=== PATIENT | female | born 1965 | race Caucasian/White ===

== ENCOUNTER → 2017-06-07 | Outpatient (CLI) | payer BC ==
[~2017-06-07] MED LIST: ASPI-232 PO; BCTROWC TOP; DTR5 PO; IBUP-1277 PO; LEVO100T7 PO; OMEP20CA9 PO; VTMD PO
== END | disposition home or self-care (01) ==
LOC: C.RDSM 15:47
PROVIDERS: ATTEND Physical Medicine & Rehabilitation Sports Medicine
DX: M25.512 Pain in left shoulder (principal)

== ENCOUNTER → 2017-06-13 | Outpatient (CLI) | payer BC ==
--- NOTE | 2017-06-13 16:13 | DIAGNOSTIC IMAGING REPORT ---
LEFT UPPER EXT JOINT WITHOUT CLINICAL HISTORY: 51 years-old Female presenting with anterior left shoulder pain since December, fell several times onto the left shoulder with decreased range of motion. TECHNIQUE: Multisequence, multiplanar MR imaging of the left shoulder was performed without the use of intravenous contrast. IV contrast: None. COMPARISON: Plain radiographs of the left shoulder from 06/07/2017. FINDINGS: Localizer images: Unremarkable. Bony edema along the greater tuberosity at the footplate of the rotator cuff. Minimal cystic change anteriorly in the clavicle at the acromioclavicular joint. Less than 50% loss of articular cartilage along the mid to posterior humeral head predominantly inferiorly. No subchondral changes in the bone marrow. Edema noted along the myotendinous junction of the infraspinatus. Minimal fluid signal within the subdeltoid subacromial bursa. Linear defect through the supraspinatus tendon, which appears to be full-thickness along the anterior fibers near the footplate. A bursal surface partial tear of the infraspinatus is also present slightly proximal to the footplate at the junction with the supraspinatus. Subscapularis intact. Glenoid labrum intact. Long head of the biceps tendon well seated within the bicipital groove. Biceps anchor is intact. Mild atrophy of the supraspinatus with remaining musculature demonstrating normal muscle bulk. Normal signal intensity of the musculature. No significant joint effusion. IMPRESSION: Evidence of full-thickness tear of the anterior fibers of the supraspinatus tendon near the footplate and bursal surface partial tear of the infraspinatus at the junction with the supraspinatus. Associated bony edema. Mild atrophy of the supraspinatus. Electronically signed by: Douglas Addison M.D. 06/13/2017 4:12 PM Dictated Date/Time: 06/13/2017 4:01 PM
== END | disposition home or self-care (01) ==
LOC: C.MRI 14:23
PROVIDERS: ATTEND Physical Medicine & Rehabilitation Sports Medicine
DX: S46.912A Strain of unspecified muscle, fascia and tendon at shoulder and upper arm level, left arm, initial encounter (principal); X58.XXXA Exposure to other specified factors, initial encounter

== ENCOUNTER 2020-10-31 12:19 | Observation (INO) ==
--- NOTE | 2020-10-31 12:54 | Emergency Department Note ---
History of Present Illness General Chief complaint: Shortness of Breath/Dyspnea Stated complaint: COVID +,SOB Time Seen by Provider: 10/31/20 12:40 Source: patient Mode of arrival: ambulatory Limitations: no limitations History of Present Illness Maximum Pain Intensity: 7 This patient brought herself to the emergency department after having increasing shortness of breath and worsening of symptoms. She was diagnosed with Covid on October 22. She started having symptoms on the first. She has had shortness of breath and cough as well as a headache at times and fever. Over the last couple days she is got more short of breath with a dry hacking cough. No change in taste or smell. She had diarrhea this morning but no other GI symptoms. She believes she has been keeping up with her fluids. No chest pain. No abdominal pain Home Medications Medication Instructions Recorded Confirmed Type albuterol sulfate 2 puff INHALATION Q4H PRN 10/31/20 10/31/20 History fluoxetine 10 mg PO QAM 10/31/20 10/31/20 History levothyroxine 125 mcg PO QAM 10/31/20 10/31/20 History oxybutynin chloride 5 mg PO QID 10/31/20 10/31/20 History pantoprazole 40 mg PO BID 10/31/20 10/31/20 History Allergies Allergy/AdvReac Type Severity Reaction Status Date / Time verapamil Allergy Intermediate HIVES Verified 10/31/20 13:10 Past Med/Surg History Social History Smoking Status: Never smoker Preferred Language: Bulgarian Feels Safe at Home: Yes Review of Systems A total of 10 systems reviewed and were otherwise negative Physical Exam Vital Signs Vital Signs - 24 hr 10/31/20 12:25 10/31/20 12:56 10/31/20 13:00 Temperature 38.2 C H Temperature Source Temporal Artery Scan Pulse Rate 86 90 95 H Pulse Rate [Apical] 86 Pulse Rate from SpO2 Sensor 89 Pulse Rhythm Regular Pulse Rhythm [Apical] Regular Pulse Strength Normal Respiratory Rate 16 22 25 H Respiratory Effort / Characteristics Non-Labored Respiratory Depth Normal Respiratory Pattern Regular Blood Pressure 158/92 H 113/89 130/72 Blood Pressure [Left Arm] 113/89 Blood Pressure Mean 114 100 97 Blood Pressure Mean [Left Arm] 97 Blood Pressure Position Sitting Blood Pressure Position [Left Arm] Sitting Pulse Oximetry 93 94 95 Oxygen Delivery Method Room Air Room Air Sepsis Recent Fever Within 48 Hours Yes Sepsis New/Unexplained Change in Mental Status N/A Sepsis Action Taken by Nursing No Action Required 10/31/20 13:30 10/31/20 13:31 10/31/20 13:34 Temperature Temperature Source Pulse Rate 75 74 Pulse Rate [Apical] Pulse Rate from SpO2 Sensor 76 74 Pulse Rhythm Pulse Rhythm [Apical] Pulse Strength Respiratory Rate 25 H 28 H Respiratory Effort / Characteristics Non-Labored Spontaneous Short of Breath SOB on Exertion Respiratory Depth Normal Respiratory Pattern Regular Blood Pressure 110/71 Blood Pressure [Left Arm] Blood Pressure Mean 82 Blood Pressure Mean [Left Arm] Blood Pressure Position Blood Pressure Position [Left Arm] Pulse Oximetry 96 96 Oxygen Delivery Method Sepsis Recent Fever Within 48 Hours Sepsis New/Unexplained Change in Mental Status Sepsis Action Taken by Nursing 10/31/20 14:02 10/31/20 14:30 10/31/20 15:00 Temperature Temperature Source Pulse Rate 81 73 83 Pulse Rate [Apical] Pulse Rate from SpO2 Sensor 81 74 83 Pulse Rhythm Pulse Rhythm [Apical] Pulse Strength Respiratory Rate 30 H 30 H 23 Respiratory Effort / Characteristics Respiratory Depth Respiratory Pattern Blood Pressure 102/90 134/75 136/91 Blood Pressure [Left Arm] Blood Pressure Mean 92 94 104 Blood Pressure Mean [Left Arm] Blood Pressure Position Blood Pressure Position [Left Arm] Pulse Oximetry 96 95 94 Oxygen Delivery Method Sepsis Recent Fever Within 48 Hours Sepsis New/Unexplained Change in Mental Status Sepsis Action Taken by Nursing 10/31/20 15:20 10/31/20 16:14 Temperature Temperature Source Pulse Rate Pulse Rate [Apical] 75 73 Pulse Rate from SpO2 Sensor Pulse Rhythm Pulse Rhythm [Apical] Pulse Strength Respiratory Rate 20 23 Respiratory Effort / Characteristics Non-Labored Respiratory Depth Normal Respiratory Pattern Blood Pressure Blood Pressure [Left Arm] 123/80 135/117 H Blood Pressure Mean Blood Pressure Mean [Left Arm] 94 123 Blood Pressure Position Blood Pressure Position [Left Arm] Pulse Oximetry 95 95 Oxygen Delivery Method Room Air Room Air Sepsis Recent Fever Within 48 Hours Sepsis New/Unexplained Change in Mental Status Sepsis Action Taken by Nursing General: Well developed well nourished middle-aged female who is hacking and coughing occasionally but in no acute distress, breathing comfortably on room air. Normal speech HEENT: Normal cephalic atraumatic. Pupils are equal round and reactive to light. Extraocular movements are intact. Oropharynx is pink with moist mucous membranes. No swelling of the mouth lips or tongue. Neck: Supple with a midline trachea. No meningeal signs or stiffness, no JVD or bruits. No Stridor. Chest: Clear to auscultation bilaterally. No wheezes or rhonchi. No increased work of breathing. Heart: Regular rate and rhythm without murmurs or gallops. Abdomen: Soft nontender, nondistended without rebound guarding or rigidity. Extremities: No cyanosis clubbing or edema. No calf tenderness or assymetry Spine/Back. Non tender to palpation. No CVA tenderness Skin: Good turgor without rashes. Neurologic exam: Cranial nerves two through 12 are intact. Motor and sensation are intact and symmetrical throughout. Course Administered Medications Discontinued Medications Acetaminophen (Acetaminophen 325 Mg Tab) 650 mg PO NOW STA Stop: 10/31/20 14:22 Last Admin: 10/31/20 15:23 Dose: 650 mg Documented by: [id number] Sodium Chloride (Nss 1000ml) 1,000 mls @ 999 mls/hr IV .Q1H1M DEREJE Stop: 10/31/20 14:00 Last Infusion: 10/31/20 14:08 Dose: 0 mls/hr Documented by: [id number] Admin: 10/31/20 13:07 Dose: 999 mls/hr Documented by: [id number] Medical Decision Making Differential Diagnosis Covid, pneumonia, CHF, cardiac disease, hypoxemia, dehydration, electrolyte or metabolic abnormality Laboratory Data Attestation: I reviewed the patient's lab results. Result diagrams: 10/31/20 12:57 10/31/20 12:57 Lab Results 10/31/20 10/31/20 10/31/20 Range/Units 12:57 12:57 12:57 WBC 6.30 (4.8-10.8) K/uL RBC 4.85 (4.2-5.4) M/uL Hgb 15.4 (12.0-16.0) g/dL Hct 44.4 (37-47) % MCV 91.5 (80-100) fL MCH 31.8 (25-34) pg MCHC 34.7 (32-36) g/dL RDW Std Deviation 43.8 (36.4-46.3) fL RDW Coeff of Wade 13.1 (11.5-14.5) % Plt Count 222 (130-400) K/uL MPV 10.1 (7.4-10.4) fL Immature Gran % (Auto) 0.2 % Neut % (Auto) 66.3 % Lymph % (Auto) 23.0 % [place] % (Auto) 9.7 % Eos % (Auto) 0.6 % Baso % (Auto) 0.2 % Neut # (Auto) 4.18 (1.4-6.5) K/uL Lymph # (Auto) 1.45 (1.2-3.4) K/uL [place] # (Auto) 0.61 H (0.11-0.59) K/uL Eos # (Auto) 0.04 (0-0.5) K/uL Baso # (Auto) 0.01 (0-0.2) K/uL Immature Gran # (Auto) 0.01 (0.00-0.02) K/uL PT 10.6 (9.0-12.0) Seconds INR 1.0 (0.9-1.1) APTT 26.0 (21.0-31.0) Seconds PTT Ratio 0.9 Sodium 138 (136-145) mmol/L Potassium 3.6 (3.5-5.1) mmol/L Chloride 106 (98-107) mmol/L Carbon Dioxide 28 (21-32) mmol/L Anion Gap 4.0 (3-11) BUN 11 (7-18) mg/dl Creatinine 0.89 (0.6-1.2) mg/dl Est Cr Clr Drug Dosing 88.9 ml/min Est GFR ( Amer) 85.2 Est GFR (Non-Af Amer) 73.5 BUN/Creatinine Ratio 12.5 (10-20) Glucose 93 (70-99) mg/dl Calcium 9.0 (8.5-10.1) mg/dl Total Bilirubin 0.7 (0.2-1) mg/dl AST 16 (15-37) U/L ALT 36 (12-78) U/L Alkaline Phosphatase 77 (45-117) U/L Troponin I < 0.015 (0-0.045) ng/ml Total Protein 8.0 (6.4-8.2) gm/dl Albumin 3.6 (3.4-5.0) gm/dl Globulin 4.4 H (2.5-4.0) gm/dl Albumin/Globulin Ratio 0.8 L (0.9-2) Lipase 198 (73-393) U/L Imaging Data Attestation: I personally reviewed and interpreted this imaging study as follows: My Impression: Chest x-ray upon my interpretation: No acute infiltrate, failure, pneumothorax seen. Radiologist's Impression: SINGLE VIEW CHEST CLINICAL HISTORY: Atypical chest pain. FINDINGS: An AP, portable, upright chest radiograph is compared to study dated 01/04/2008. The cardiomediastinal silhouette is unremarkable. There is elevation of the right hemidiaphragm with associated right basilar atelectasis. No airspace consolidation or large pleural effusion is identified. No pneumothorax is seen. The skeletal structures are osteopenic. The bony thorax is grossly intact. IMPRESSION: 1. No acute cardiopulmonary abnormality. 2. There is elevation of the right hemidiaphragm with associated atelectasis. ECG Data Attestation: I personally reviewed and interpreted this ECG as follows: Indication: + SOB/dyspnea Rate (beats per minute): 85 Rhythm: + normal sinus ECG Intervals/blocks: no Normal QRS, no Normal QT and no Normal NH ECG [place]: + Normal ECG ST segments: + Normal ST segments ECG Findings: no PACs and no PVCs Comparison ECG Date: no prior available MDM Narrative This patient comes in with known Covid. She was diagnosed 9 days ago and star hollie having symptoms 11 days ago. She is been getting worse with more shortness of breath and weakness. She is been keeping up with her fluids in triage her oxygen saturation was low at 93. She is an ex-smoker but does not currently smoke and has no lung problems to begin with she tells me. When I saw her O2 sat was 93%. IV access was established and she was hydrated with IV normal saline bolus, chest x-ray, and EKG were obtained as well as blood work. She was given Tylenol p.o. for her fever/headache. She was placed on respiratory/airborne precaution. Chest x-ray does not show any acute infiltrate, failure, pneumothorax. EKG does not show any ischemic changes. She is no significant electrolyte or metabolic abnormalities. Given the fact that she has been getting worse despite outpatient steroids and was mildly hypoxemic I do think that she needs to be admitted/observed a consult to Dr. Juarez from [facility] to see her in the ER for these measures Continuous cardiac monitoring: Order was placed in the EMR for continuous cardiac monitoring. The patient was found to be in normal sinus rhythm with a rate of 73. Impression & Plan COVID-19, Dyspnea, Hypoxemia, Cough, Headache Discharge Plan Visit Data Chief Complaint: Shortness of Breath/Dyspnea Stated Complaint: COVID +,SOB ED Provider: Etlon Morejon Discharge Problem: COVID-19, Dyspnea, Hypoxemia, Cough, Headache Discharge Instructions Interventions: ED Discharge Assessment Last Done: 10/31/20 16:25 Forms Stand Alone Forms: [facility] Prescriptions Prescriptions: No Action pantoprazole 40 mg tablet,delayed release (DR/EC) 40 mg PO BID RF: 0 levothyroxine 125 mcg tablet 125 mcg PO QAM RF: 0 fluoxetine 10 mg capsule 10 mg PO QAM RF: 0 albuterol sulfate 90 mcg/actuation HFA aerosol inhaler 2 puff INHALATION Q4H PRN (Reason: Shortness Of Breath) RF: 0 oxybutynin chloride 5 mg tablet 5 mg PO QID RF: 0 Referrals Referrals: Kae Putnam DO [Primary Care Provider] - Discharge Problem: Dyspnea Qualifiers: Dyspnea type: unspecified Qualified Code(s): R06.00 - Dyspnea, unspecified Headache Qualifiers: Headache type: unspecified Headache chronicity pattern: unspecified pattern Intractability: not intractable Qualified Code(s): R51.9 - Headache, unspecified
[2020-10-31] MEDS ORDERED: SODIUM CHLORIDE 0.9% 1000ML 1,000 ML IV SCH (13:00)
--- NOTE | 2020-10-31 13:05 | XRay Report ---
SINGLE VIEW CHEST CLINICAL HISTORY: Atypical chest pain. FINDINGS: An AP, portable, upright chest radiograph is compared to study dated 01/04/2008. The cardiom ediastinal silhouette is unremarkable. There is elevation of the right hemidiaphragm with associated right basilar atelectasis. No airspace consolidation or large pleural effusion is identified. No pneu mothorax is seen. The skeletal structures are osteopenic. The bony thorax is grossly intact. IMPRESSION: 1. No acute cardiopulmonary abnormality. 2. There is elevation of the right hemidiaphragm with associated atelectasis. ACT 112: Negative or not required by law. Electronically signed by: Patrick Montgomery M.D. 10/31/2020 1:04 PM
[2020-10-31 13:24] LABS: Basophils # (auto) 0.01 K/uL (0-0.2); Basophils % (auto) 0.2 %; Eosinophils # (auto) 0.04 K/uL (0-0.5); Eosinophils % (auto) 0.6 %; Hematocrit (blood only) 44.4 % (37-47); Hemoglobin 15.4 g/dL (12.0-16.0); Immature Granulocytes # (auto) 0.01 K/uL (0.00-0.02); Immature Granulocytes % (auto) 0.2 %; Lymphocytes # (auto) 1.45 K/uL (1.2-3.4); Mean Corpuscular Hemoglobin 31.8 pg (25-34); Mean Corpuscular Hgb Conc 34.7 g/dL (32-36); Mean Corpuscular Volume 91.5 fL (80-100); Mean Platelet Volume 10.1 fL (7.4-10.4); Monocytes # (auto) 0.61 K/uL (0.11-0.59); Monocytes % (auto) 9.7 %; Neutrophils # (auto) 4.18 K/uL (1.4-6.5); Neutrophils % (auto) 66.3 %; Platelet Count 222 K/uL (130-400); RDW Coefficient of Variation 13.1 % (11.5-14.5); RDW Standard Deviation 43.8 fL (36.4-46.3); Red Blood Count 4.85 M/uL (4.2-5.4)
[2020-10-31 13:34] LABS: Partial Thromboplastin Ratio 0.9; Prothrombin Time 10.6 Seconds (9.0-12.0)
[2020-10-31 13:40] LABS: Alanine Aminotransferase 36 U/L (12-78); Albumin Level 3.6 gm/dl (3.4-5.0); Aspartate Aminotransferase 16 U/L (15-37); BUN Creatinine Ratio 12.5 (10-20); Blood Urea Nitrogen 11 mg/dl (7-18); Carbon Dioxide 28 mmol/L (21-32); Chloride 106 mmol/L (98-107); Creatinine Clr Calc Pharmacy 88.9 ml/min; Est GFR (African American) 85.2; Est GFR (Non-African American) 73.5; Glucose 93 mg/dl (70-99); Lipase 198 U/L (73-393); Potassium 3.6 mmol/L (3.5-5.1); Sodium 138 mmol/L (136-145)
[2020-10-31 13:48] LABS: Albumin Globulin Ratio 0.8 (0.9-2); Alkaline Phosphatase 77 U/L (45-117); Bilirubin,Total 0.7 mg/dl (0.2-1); Globulin 4.4 gm/dl (2.5-4.0); Troponin I < 0.015 ng/ml (0-0.045)
[2020-10-31] MEDS ORDERED: ACETAMINOPHEN 325 MG TAB PO STA ×2 (14:21→22:01)
--- NOTE | 2020-10-31 14:45 | History & Physical Report ---
Date of Service October 31, 2020 Assessment & Plan (1) COVID-19: (2) Dyspnea: (3) Hypothyroid: (4) GERD (gastroesophageal reflux disease): (5) Obesity: DVT prophylaxis, Dexamethasone, Vit D3, Zinc, O2, PPI, OBS History of Present Illness 55-year-old healthy female started to get Covid symptoms on 20 October. Began with shortness of breath fever and chills over the last several days her shortness of breath and cough and gotten worse. On October 22 she was diagnosed with Covid and finished a course of steroids. However she does not feel that she is getting better and she getting progressively worse so she drove herself to the emergency room this morning. In the ER she was noted to be febrile and 92% on room air. She says when she walks up stairs she has to sit down and catch her breath. She states she was doing fine, but on Monday she started to get the symptoms all over again, fevers, chills, headache, and today she started to have diarrhea. Past medical historyobesity, diverticulosis, GERD, hypothyroidism Past surgical historycholecystectomy, appendectomy, hysterectomy, partial colon resection. Family historymother is alive with diabetes and coronary disease, father is alive with coronary disease, she has 1 son and 2 daughters are healthy. 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 Primary Care Provider: Kae Putnam DO Allergies Allergy/AdvReac Type Severity Reaction Status Date / Time verapamil Allergy Intermediate HIVES Verified 10/31/20 13:10 Home Medications Medication Instructions Recorded Confirmed Type albuterol sulfate 2 puff INHALATION Q4H PRN 10/31/20 10/31/20 History fluoxetine 10 mg PO QAM 10/31/20 10/31/20 History levothyroxine 125 mcg PO QAM 10/31/20 10/31/20 History oxybutynin chloride 5 mg PO QID 10/31/20 10/31/20 History pantoprazole 40 mg PO BID 10/31/20 10/31/20 History Past Med/Surg History Social History Smoking Status: Never smoker Preferred Language: Polish Feels Safe at Home: Yes Physical Exam Physical Exam: ROS-positive headache, No Visual Changes, positive nausea, No Vomiting, positive fever, positive chills, No Neck Pain or Stiffness, No Chest Pain, No Palpitations, positive SOB, positive QUEEN, positive cough, No Sputum, positive wheezing, No Abdominal Pain, positive diarrhea, No Hematemesis, No Hemoptysis, No Unexpected Weight Loss, No Flank pain, No Melena, No Hematochezia, No Frequency, No Urgency, No Burning, No Hematuria, No Rashes, No Diaphoresis. Appetite is Normal Physical Exam Gen-AAO x 3, NAD, Afebrile, obese Head-NCAT, EOMI, PERRLA, Anicteric Sclera, No Posterior Pharyngeal Erythema Neck-Supple, No JVD, No Thyromegaly, No Masses, No LAD, No Bruits Lungs-faint crackles bilaterally, no rhonchi or wheezing Chest-No S4, +S1, +S2, No S3, No Murmurs, No Rubs, No Gallops, No Ectopy Abdomen-Soft, obese, bowel Sounds Present, Non Tender, Non Distended, No Hepatomegaly, No Splenomegaly, No Palpable Masses, No Rebound, No Rigidity, No Guarding Musculoskeletal-Full Range of Motion Bilaterally, No CVAT Extremities-No Cyanosis, No Clubbing, No Edema Nuero-Cranial Nerves II-XII grossly intact, Motor WNL, DTRs WNL, Strength WNL, Non Focal Psych-Normal Mood Results & Data Results & Data ([facility]) Vital Signs (Past 12 Hours) Vital Signs Temp Pulse Pulse Resp BP BP Pulse Ox 10/31/20 13:31 74 28 H 96 10/31/20 13:30 75 25 H 110/71 96 10/31/20 13:00 95 H 25 H 130/72 95 10/31/20 12:56 90 86 22 113/89 113/89 94 10/31/20 12:25 38.2 C H 86 16 158/92 H 93 Allergies verapamil Allergy (Intermediate, Verified 10/31/20 13:10) HIVES Height/Weight/Isolation Height 5 ft 3 in Weight 116.3 kg Isolation Type Airborne Precautions Chemistry 10/31/20 12:57 Sodium 138 Potassium 3.6 Chloride 106 Carbon Dioxide 28 Anion Gap 4.0 BUN 11 Creatinine 0.89 Glucose 93
[2020-10-31] MEDS ORDERED: ALBUT/IPRATROP 3MG/0.5MG NEB 3 ML VIAL NEB PRN (17:26)
[2020-10-31] MEDS ORDERED: ONDANSETRON INJ 2 MG/ML 2 ML VIAL IV PRN (17:26)
[2020-10-31] MEDS: ZINC SULFATE 220 MG CAPSULE PO SCH (18:08)
[2020-10-31] MEDS: CHOLECALCIFEROL 400 UNITS 10 MCG TAB PO SCH (18:08)
[2020-10-31] MEDS: OXYBUTYNIN CHLORIDE 5 MG TAB PO SCH ×2 (18:08→21:56)
[2020-10-31 18:34] LABS: C Reactive Protein 1.17 mg/dl (0-0.29)
[2020-10-31] MEDS: HEPARIN SOD 5,000 UNIT/0.5 ML VIAL SQ SCH (21:56)
[2020-10-31] MEDS: PANTOprazole 40 MG TAB PO SCH (21:56)
[2020-10-31] MEDS ORDERED: ACETAMINOPHEN 325 MG TAB PO PRN (22:02)
[2020-11-01] MEDS ORDERED: LEVOTHYROXINE SODIUM 125 MCG TABLET PO SCH (06:30)
[2020-11-01] MEDS: HEPARIN SOD 5,000 UNIT/0.5 ML VIAL SQ SCH (06:34)
[2020-11-01 06:56] LABS: Hematocrit (blood only) 40.7 % (37-47); Hemoglobin 13.6 g/dL (12.0-16.0); Mean Corpuscular Hgb Conc 33.4 g/dL (32-36); Mean Corpuscular Volume 92.7 fL (80-100); Platelet Count 181 K/uL (130-400); RDW Coefficient of Variation 13.3 % (11.5-14.5); RDW Standard Deviation 45.2 fL (36.4-46.3); Red Blood Count 4.39 M/uL (4.2-5.4); White Blood Count 4.46 K/uL (4.8-10.8)
[2020-11-01 07:31] LABS: BUN Creatinine Ratio 12.6 (10-20); Calcium 8.2 mg/dl (8.5-10.1); Creatinine Clr Calc Pharmacy 95.5 ml/min; Est GFR (Non-African American) 81.1; Potassium 3.7 mmol/L (3.5-5.1)
[2020-11-01] MEDS: PANTOprazole 40 MG TAB PO SCH (07:54)
[2020-11-01] MEDS: ZINC SULFATE 220 MG CAPSULE PO SCH (07:56)
[2020-11-01] MEDS: CHOLECALCIFEROL 400 UNITS 10 MCG TAB PO SCH (07:56)
[2020-11-01] MEDS: OXYBUTYNIN CHLORIDE 5 MG TAB PO SCH (07:57)
[2020-11-01] MEDS ORDERED: FLUoxetine HCL 10 MG CAP PO SCH (09:00)
[2020-11-01] MEDS ORDERED: dexAMETHasone 6 MG in SYRINGE 0 ML IV SCH (09:00)
--- NOTE | 2020-11-01 09:23 | XRay Report ---
XR chest 1V portable HISTORY: Atypical chest pain. follow up lung infiltrates COMPARISON: Chest 10/31/2020. FINDINGS: No pneumothorax. No pleural effusions. The cardiac silhouette remains mildly enlarged. This may be accentuated by the low lung volumes. Bibasilar densities persist and may represent atelectasi s. The upper lung zones are clear. No evidence for pulmonary edema. IMPRESSION: Low lung volumes and bibasilar densities, unchanged. This may represent atelectasis. ACT 112: Negative or not required by law. Electronically signed by: Eric Contreras M.D. 11/01/2020 9:22 AM
--- NOTE | 2020-11-01 12:09 | Hospitalist Progress Note ---
Date of Service November 01, 2020 Assessment & Plan (1) COVID-19: COVID-19 with Dyspnea (but no chest infiltrates and no oxygen desaturation) -Patient reports COVID-19 positive test on 10/22/2020 Patient continue to have good oxygenation levels to be breathing on room air oxygen. Chest X ray on 10/31/2020 and 11/01/2020 did not identify lung infiltrates that suggests viral pneumonia. Patient afebrile in the hospital with normal White Blood Cell counts. No tachycardia. No hypotension. Patient can be discharged to home. patient advised to follow precautions with face mask wearing as recommended by the CDC and local public health agencies Discharge medication sent electronically to [facility] [id number], [place] [address] of prednisone taper of 50 mg daily for 6 days then 25 mg daily for 4 days then stop of famotidine 20 mg daily for gastric reflux symptoms of vitamin D 400 mg daily for 1 month supply for preventative health of acetaminophen 325 mg every 6 hours as needed if pain or if fever Patient should follow up with primary care doctor in 1 to 2 weeks if symptoms of malaise continues to linger. Patient should call ahead her physician office before setting up appointments (2) Dyspnea: -as above (3) GERD (gastroesophageal reflux disease): -continue pantoprazole BID, patient concerned whether recent outpatient steroids also increase acid reflux symptoms, famotidine is added (4) Hypothyroid: -continue home dose levothyroxine (5) Obesity: with BMI 44.6 Admission and Anticipated Discharge Date Admission Date: October 31, 2020 Subjective besides headaches which are intermittent, patient is in no distress. a full review of systems were performed but patient does not have any signs or symptoms that requires prolonged hospitalization Patient continue to have good oxygenation levels to be breathing on room air oxygen. Chest X ray on 10/31/2020 and 11/01/2020 did not identify lung infiltrates that suggests viral pneumonia. Patient afebrile in the hospital with normal White Blood Cell counts. No tachycardia. No hypotension. we discussed outpatient treatment with new course of oral prednisone. patient agrees Review of Systems Review of Systems: All systems reviewed & are unremarkable except as noted in Subjective Physical Exam Constitutional: comfortable Eyes: PERRL, conjunctivae normal, anicteric sclerae EOM intact bilaterally ENMT: external ear and nose normal, oropharynx normal Neck: normal visual inspection Respiratory: normal respiratory effort, lungs clear to auscultation Cardiovascular: Rate/Rhythm: regular rate and regular rhythm Gastrointestinal (Abdomen): normal bowel sounds, soft, nontender, no hepatosplenomegaly Musculoskeletal: Head/Neck/Chest: normocephalic and head atraumatic Neurologic: PERRL, EOMI, accommodation nl, no face palsy, no dysarthria CN's II-XI intact bilaterally Psychiatric: A+Ox3, euthymic affect Results & Data Results & Data ([facility]) Vital Signs (Past 12 Hours) Vital Signs Temp Pulse Pulse Pulse Pulse Pulse Resp 11/01/20 11:22 36.6 C 67 18 11/01/20 10:38 59 L 11/01/20 09:42 108 H 96 H 84 11/01/20 07:34 36.6 C 67 18 11/01/20 03:46 36.6 C 61 20 11/01/20 03:32 38 C H 89 24 Resp Resp Resp BP Pulse Ox Pulse Ox Pulse Ox 11/01/20 11:22 130/76 91 11/01/20 10:38 11/01/20 09:42 23 21 18 91 92 11/01/20 07:34 116/75 93 11/01/20 03:46 124/76 98 11/01/20 03:32 126/37 L 92 Pulse Ox 11/01/20 11:22 11/01/20 10:38 11/01/20 09:42 92 11/01/20 07:34 11/01/20 03:46 11/01/20 03:32 (1) Dyspnea Dyspnea type: unspecified Qualified Code(s): R06.00 - Dyspnea, unspecified
--- NOTE | 2020-11-01 12:14 | Discharge Summary ---
Date of Service November 01, 2020 Admission HPI Per Admitting Provider 55-year-old healthy female started to get Covid symptoms on 20 October. Began with shortness of breath fever and chills over the last several days her shortness of breath and cough and gotten worse. On October 22 she was diagnosed with Covid and finished a course of steroids. However she does not feel that she is getting better and she getting progressively worse so she drove herself to the emergency room this morning. In the ER she was noted to be febrile and 92% on room air. She says when she walks up stairs she has to sit down and catch her breath. She states she was doing fine, but on Monday she started to get the symptoms all over again, fevers, chills, headache, and today she started to have diarrhea. Past medical historyobesity, diverticulosis, GERD, hypothyroidism Past surgical historycholecystectomy, appendectomy, hysterectomy, partial colon resection. Family historymother is alive with diabetes and coronary disease, father is alive with coronary disease, she has 1 son and 2 daughters are healthy. 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 Principal Diagnosis COVID-19 with Dyspnea (but no chest infiltrates and no oxygen desaturation) Hypothyroidism GERD (gastroesophageal reflux disease) Obesity with BMI of 44.6 Discharge Exam Constitutional comfortable Eyes PERRL, conjunctivae normal, anicteric sclerae EOM intact bilaterally ENMT external ear and nose normal, oropharynx normal Neck normal visual inspection Respiratory normal respiratory effort, lungs clear to auscultation Cardiovascular Rate/Rhythm: regular rate and regular rhythm Gastrointestinal (Abdomen) normal bowel sounds, soft, nontender, no hepatosplenomegaly Musculoskeletal Head/Neck/Chest: normocephalic and head atraumatic Neurologic PERRL, EOMI, accommodation nl, no face palsy, no dysarthria CN's II-XI intact bilaterally Psychiatric A+Ox3, euthymic affect Discharge Data Allergies Allergy/AdvReac Type Severity Reaction Status Date / Time verapamil Allergy Intermediate HIVES Verified 10/31/20 13:10 Consultations 10/31/20 14:24 ED Decision to Admit Stat Hospital Course (1) COVID-19: COVID-19 with Dyspnea (but no chest infiltrates and no oxygen desaturation) -Patient reports COVID-19 positive test on 10/22/2020 Patient continue to have good oxygenation levels to be breathing on room air oxygen. Chest X ray on 10/31/2020 and 11/01/2020 did not identify lung infiltrates that suggests viral pneumonia. Patient afebrile in the hospital with normal White Blood Cell counts. No tachycardia. No hypotension. besides headaches which are intermittent, patient is in no distress. a full review of systems were performed but patient does not have any signs or symptoms that requires prolonged hospitalization Patient can be discharged to home. patient advised to follow precautions with face mask wearing as recommended by the CDC and local public health agencies Discharge medication sent electronically to [facility] [id number], [place] [address] of prednisone taper of 50 mg daily for 6 days then 25 mg daily for 4 days then stop of famotidine 20 mg daily for gastric reflux symptoms of vitamin D 400 mg daily for 1 month supply for preventative health of acetaminophen 325 mg every 6 hours as needed if pain or if fever Patient should follow up with primary care doctor in 1 to 2 weeks if symptoms of malaise continues to linger. Patient should call ahead her physician office before setting up appointments (2) Dyspnea: -as above (3) GERD (gastroesophageal reflux disease): -continue pantoprazole BID, patient concerned whether recent outpatient steroids also increase acid reflux symptoms, famotidine is added (4) Hypothyroid: -continue home dose levothyroxine (5) Obesity: with BMI 44.6 Total Time Total Time Spent Total Time Spent (In Minutes): 40 minutes Total Time Includes: Examination of the Patient, Discharge Planning, Medication Reconciliation and Communication With Other Providers Discharge Plan Discharge Items Patient Disposition: Home - Self-Care Reason For Visit: COVID Discharge Diagnosis: COVID-19 with Dyspnea (but no chest infiltrates and no oxygen desaturation) Hypothyroidism GERD (gastroesophageal reflux disease) Obesity with BMI of 44.6 Activity: Per Instructions section Weightbearing: Full weightbearing Non-emergency contact: Primary Care Provider Call non-emergency contact if: you have any medication questions Follow-up/Referrals: Kae Putnam DO [Primary Care Provider] - Diet: Regular Addtl Attending Provider Instructions: Patient reports COVID-19 positive test on 10/22/2020 Patient continue to have good oxygenation levels to be breathing on room air oxygen. Chest X ray on 10/31/2020 and 11/01/2020 did not identify lung infiltrates that suggests viral pneumonia. Patient afebrile in the hospital with normal White Blood Cell counts. No tachycardia. No hypotension. Patient can be discharged to home. patient advised to follow precautions with face mask wearing as recommended by the CDC and local public health agencies Discharge medication sent electronically to [facility] [address], [place] [address] of prednisone taper of 50 mg daily for 6 days then 25 mg daily for 4 days then stop of famotidine 20 mg daily for gastric reflux symptoms of vitamin D 400 mg daily for 1 month supply for preventative health of acetaminophen 325 mg every 6 hours as needed if pain or if fever Patient should follow up with primary care doctor in 1 to 2 weeks if symptoms of malaise continues to linger. Patient should call ahead her physician office before setting up appointments Pending Studies at Discharge: No Stand-Alone Forms: My [facility] [employer], Smoking Cessation Medications and DC Order Prescriptions: New cholecalciferol (vitamin D3) [Vitamin D3] 10 mcg (400 unit) Tablet 400 unit PO QAM 30 Days Qty: 30 RF: 0 famotidine 20 mg Tablet 20 mg PO QAM 30 Days Qty: 30 RF: 0 prednisone 50 mg tablet 50 mg PO DAILY 10 Days Qty: 8 RF: 0 acetaminophen 325 mg Tablet 325 mg PO Q6H PRN (Reason: fever or pain) 7 Days Qty: 28 RF: 0 Continued pantoprazole 40 mg tablet,delayed release (DR/EC) 40 mg PO BID RF: 0 levothyroxine 125 mcg tablet 125 mcg PO QAM RF: 0 fluoxetine 10 mg capsule 10 mg PO QAM RF: 0 albuterol sulfate 90 mcg/actuation HFA aerosol inhaler 2 puff INHALATION Q4H PRN (Reason: Shortness Of Breath) RF: 0 oxybutynin chloride 5 mg tablet 5 mg PO QID RF: 0 Discharge Orders: Discharge Order (Routine); Ordered 11/01/20 Ordered By: Jesus Ortiz/Other Patient Handouts: COVID-19 Home Care Admission Data Admit Date/Time: 10/31/20 15:21 Attending Provider: Jesus Avila Admit Provider: Jesus Juarez Primary Care Provider: Kae Putnam Other Providers: Jesus Juarez
--- NOTE | 2020-11-02 06:27 | Electrocardiogram Report ---
Test Reason : Blood Pressure : / mmHG Vent. Rate : 085 BPM Atrial Rate : 085 BPM P-R Int : 136 ms QRS Dur : 076 ms QT Int : 356 ms P-R-T Axes : 018 029 040 degrees QTc Int : 423 ms Normal sinus rhythm Normal ECG No previous ECGs available Confirmed by Tru Castaneda ([id number]) on 11/02/2020 6:27:17 AM Referred By: Confirmed By:Tru Castaneda
[2020-11-02] MEDS ORDERED: predniSONE 20 MG TAB PO SCH (09:00)
[2020-11-02] MEDS ORDERED: FAMOTIDINE 20 MG TAB PO SCH (09:00)
== END 2020-11-01 13:19 | disposition home or self-care (01) ==
LOC: 2S 12:19 → ED 12:19 → SUATTDRO 15:21 → 2S 16:25

== ENCOUNTER 2021-06-28 11:00 | Inpatient (IN) ==
[2021-06-28 11:37] LABS: Basophils # (auto) 0.01 K/uL (0-0.2); Basophils % (auto) 0.2 %; Eosinophils # (auto) 0.04 K/uL (0-0.5); Eosinophils % (auto) 0.7 %; Hematocrit (blood only) 43.7 % (37-47); Hemoglobin 14.8 g/dL (12.0-16.0); Immature Granulocytes # (auto) 0.02 K/uL (0.00-0.02); Immature Granulocytes % (auto) 0.4 %; Lymphocytes # (auto) 1.03 K/uL (1.2-3.4); Lymphocytes % (auto) 19.2 %; Mean Corpuscular Hemoglobin 31.4 pg (25-34); Mean Corpuscular Hgb Conc 33.9 g/dL (32-36); Mean Corpuscular Volume 92.8 fL (80-100); Mean Platelet Volume 9.7 fL (7.4-10.4); Monocytes # (auto) 0.32 K/uL (0.11-0.59); Neutrophils # (auto) 3.94 K/uL (1.4-6.5); Neutrophils % (auto) 73.5 %; Platelet Count 281 K/uL (130-400); RDW Coefficient of Variation 13.8 % (11.5-14.5); Red Blood Count 4.71 M/uL (4.2-5.4); White Blood Count 5.36 K/uL (4.8-10.8)
[2021-06-28] MEDS ORDERED: SODIUM CHLORIDE 0.9% 1000ML 1,000 ML IV ONE (11:49)
[2021-06-28 11:54] LABS: Appearance Urine Clear (Clear); Bilirubin Urine Negative (Negative); Blood Urine Negative (Negative); Color Urine Yellow; Glucose Urine UA Negative (Negative); Ketones Urine Trace (Negative); Leukocyte Esterase Urine Negative (Negative); Nitrite Urine Negative (Negative); Protein Urine Negative (Negative); Specific Gravity Urine 1.025 (1.000-1.030); Urobilinogen Urine Negative (Negative); pH Urine 5.5 (4.5-7.5)
[2021-06-28 11:57] LABS: BUN Creatinine Ratio 16.7 (10-20); Calcium 9.5 mg/dl (8.5-10.1); Creatinine Clr Calc Pharmacy 110.1 ml/min; Est GFR (African American) 108.2 ml/min; Est GFR (Non-African American) 93.4 ml/min; Potassium 5.4 mmol/L (3.5-5.1)
[2021-06-28 12:01] LABS: Acetaminophen < 2 ug/ml (10-30); Salicylate 1.8 mg/dl (2.8-20)
--- NOTE | 2021-06-28 12:01 | Emergency Department Note ---
History of Present Illness General Chief complaint: Mental Health Evaluation Stated complaint: SWALLOWED POISON Time Seen by Provider: 06/28/21 11:39 Source: patient and family ( who is at the bedside) Mode of arrival: ambulatory Limitations: no limitations History of Present Illness Maximum Pain Intensity: 0 This patient is a 55-year-old female who said she had too much to drink last night and started feeling sorry for herself. She said around 530 or 6 she had up to 1 teaspoon of beta thyroid which is an insecticide. She said it tasted awful so she did not take anymore. She denies any other ingestions. She denies aspirin or Tylenol or drink street drugs. She says she cannot get the smell out of her mouth and nose he said he got her glasses as well. She does feel nausea vomited last an hour ago she had some diarrhea this morning but also drank heavily last night. No abdominal pain no chest pain or shortness of breath. Home Medications Medication Instructions Recorded Confirmed Type fluoxetine 10 mg capsule 10 mg PO QAM 10/31/20 06/28/21 History levothyroxine 125 mcg tablet 125 mcg PO QAM 10/31/20 06/28/21 History oxybutynin chloride 5 mg tablet 5 mg PO QID 10/31/20 06/28/21 History pantoprazole 40 mg tablet,delayed 40 mg PO BID 10/31/20 06/28/21 History release Allergies Allergy/AdvReac Type Severity Reaction Status Date / Time verapamil Allergy Unknown Hives Verified 12/24/20 07:28 Past Med/Surg History Medical History Acid reflux controlled Anxiety Diverticulitis remote hx (10+ years ago) > pt had colon resection History of COVID-19 10/22/20 (tested positive at [facility])- initial symptoms of c ough, dyspnea, headache/now resolved, per patient surgeon requested preop COVID test be done 12/17 at PAT visit Hypothyroid Morbid obesity Urinary incontinence chronic since hysterectomy Surgical History History of colon resection 10+ years ago History of colonoscopy History of endoscopy History of hysterectomy 2001 History of right knee surgery 2007 Family History Brother Family history of diabetes mellitus Brother Family history of diabetes mellitus Mother Family history of diabetes mellitus Social History Smoking Status: Never smoker Second Hand Exposure: No; Hx Alcohol Use: Yes Alcohol type: beer Hx Substance Use: No Preferred Language: Armenian Communication Ability: Effective Metal Buffer Required: No Beliefs That Will Affect Care: None Current Living Situation: Spouse and Family Feels Safe at Home: Yes Assistive Devices: Glasses Review of Systems A total of 10 systems reviewed and were otherwise negative Physical Exam Vital Signs Vital Signs - 24 hr 06/28/21 11:01 06/28/21 12:00 06/28/21 12:30 Temperature 36.4 C L Temperature Source Temporal Artery Scan Pulse Rate 90 71 77 Pulse Rate from SpO2 Sensor Pulse Rhythm Regular Respiratory Rate 18 20 20 Respiratory Effort / Characteristics Non-Labored Respiratory Depth Normal Blood Pressure 166/102 H 142/88 H Blood Pressure Mean 123 106 Pulse Oximetry 97 96 98 Oxygen Delivery Method Room Air Room Air Sepsis Recent Fever Within 48 Hours No Sepsis New/Unexplained Change in Mental Status No Sepsis Action Taken by Nursing No Action Required 06/28/21 13:30 06/28/21 15:45 06/28/21 15:50 Temperature Temperature Source Pulse Rate 90 81 78 Pulse Rate from SpO2 Sensor 82 77 Pulse Rhythm Respiratory Rate 20 23 25 H Respiratory Effort / Characteristics Respiratory Depth Blood Pressure 145/95 H Blood Pressure Mean 111 Pulse Oximetry 94 95 95 Oxygen Delivery Method Room Air Sepsis Recent Fever Within 48 Hours Sepsis New/Unexplained Change in Mental Status Sepsis Action Taken by Nursing 06/28/21 16:00 06/28/21 16:22 06/28/21 16:30 Temperature Temperature Source Pulse Rate 83 74 75 Pulse Rate from SpO2 Sensor 80 74 76 Pulse Rhythm Respiratory Rate 23 23 19 Respiratory Effort / Characteristics Respiratory Depth Blood Pressure Blood Pressure Mean Pulse Oximetry 94 95 94 Oxygen Delivery Method Sepsis Recent Fever Within 48 Hours Sepsis New/Unexplained Change in Mental Status Sepsis Action Taken by Nursing 06/28/21 16:40 06/28/21 16:50 06/28/21 17:00 Temperature Temperature Source Pulse Rate 75 85 79 Pulse Rate from SpO2 Sensor 75 Pulse Rhythm Respiratory Rate 25 H 19 21 Respiratory Effort / Characteristics Respiratory Depth Blood Pressure Blood Pressure Mean Pulse Oximetry 94 Oxygen Delivery Method Sepsis Recent Fever Within 48 Hours Sepsis New/Unexplained Change in Mental Status Sepsis Action Taken by Nursing 06/28/21 17:10 Temperature Temperature Source Pulse Rate 80 Pulse Rate from SpO2 Sensor Pulse Rhythm Respiratory Rate 19 Respiratory Effort / Characteristics Respiratory Depth Blood Pressure 134/81 Blood Pressure Mean 98 Pulse Oximetry Oxygen Delivery Method Sepsis Recent Fever Within 48 Hours Sepsis New/Unexplained Change in Mental Status Sepsis Action Taken by Nursing General: Well developed well nourished not ill-appearing middle-age female who appears in no acute distress, breathing comfortably on room air. Normal speech HEENT: Normal cephalic atraumatic. Pupils are equal round and reactive to light. Pupils are approximately 4 mm extraocular movements are intact. Orophar ynx is pink with moist mucous membranes. No swelling of the mouth lips or tongue. Neck: Supple with a midline trachea. No meningeal signs or stiffness, no JVD or bruits. No Stridor. Chest: Clear to auscultation bilaterally. No wheezes or rhonchi. No increased work of breathing. Heart: Regular rate and rhythm without murmurs or gallops. Abdomen: Soft nontender, nondistended without rebound guarding or rigidity. Extremities: No cyanosis clubbing or edema. No calf tenderness or assymetry Spine/Back. Non tender to palpation. No CVA tenderness Skin: Good turgor without rashes. Neurologic exam: Cranial nerves two through 12 are intact. Motor and sensation are intact and symmetrical throughout. Psych: Normal affect. Denies that she has thoughts of hurting herself or others at present Course Administered Medications Discontinued Medications Sodium Chloride (Nss 1000ml) 1,000 mls @ 999 mls/hr IV .Q1H1M ONE Stop: 06/28/21 12:49 Last Infusion: 06/28/21 12:50 Dose: 0 mls/hr Documented by: [id number] Admin: 06/28/21 12:08 Dose: 999 mls/hr Documented by: [id number] Medical Decision Making Differential Diagnosis Depression, overdose, toxicologic, metabolic, anxiety, arrhythmia, electrolyte or metabolic abnormality Medical Records Attestation: I reviewed the patient's medical records. Home Medications Current Medication List: was personally reviewed by me Laboratory Data Attestation: I reviewed the patient's lab results. Result diagrams: 06/28/21 11:19 06/28/21 11:19 Lab Results 06/28/21 06/28/21 06/28/21 Range/Units 11:19 11:19 11:19 WBC 5.36 (4.8-10.8) K/uL RBC 4.71 (4.2-5.4) M/uL Hgb 14.8 (12.0-16.0) g/dL Hct 43.7 (37-47) % MCV 92.8 (80-100) fL MCH 31.4 (25-34) pg MCHC 33.9 (32-36) g/dL RDW Std Deviation 47.0 H (36.4-46.3) fL RDW Coeff of Wade 13.8 (11.5-14.5) % Plt Count 281 (130-400) K/uL MPV 9.7 (7.4-10.4) fL Immature Gran % (Auto) 0.4 % Neut % (Auto) 73.5 % Lymph % (Auto) 19.2 % [place] % (Auto) 6.0 % Eos % (Auto) 0.7 % Baso % (Auto) 0.2 % Neut # (Auto) 3.94 (1.4-6.5) K/uL Lymph # (Auto) 1.03 L (1.2-3.4) K/uL [place] # (Auto) 0.32 (0.11-0.59) K/uL Eos # (Auto) 0.04 (0-0.5) K/uL Baso # (Auto) 0.01 (0-0.2) K/uL Immature Gran # (Auto) 0.02 (0.00-0.02) K/uL PT (9.0-12.0) Seconds INR (0.9-1.1) APTT (21.0-31.0) Seconds PTT Ratio Sodium 138 (136-145) mmol/L Potassium 5.4 H (3.5-5.1) mmol/L Chloride 108 H (98-107) mmol/L Carbon Dioxide 26 (21-32) mmol/L Anion Gap 4.0 (3-11) BUN 12 (7-18) mg/dl Creatinine 0.73 (0.6-1.2) mg/dl Est Cr Clr Drug Dosing 110.1 ml/min Est GFR ( Amer) 108.2 ml/min Est GFR (Non-Af Amer) 93.4 ml/min BUN/Creatinine Ratio 16.7 (10-20) Glucose 118 H (70-99) mg/dl Calcium 9.5 (8.5-10.1) mg/dl Total Bilirubin 0.7 (0.2-1) mg/dl AST 20 (15-37) U/L ALT 37 (12-78) U/L Alkaline Phosphatase 66 (45-117) U/L Total Protein 7.9 (6.4-8.2) gm/dl Albumin 4.0 (3.4-5.0) gm/dl Globulin 3.9 (2.5-4.0) gm/dl Albumin/Globulin Ratio 1.0 (0.9-2) TSH 1.340 (0.300-4.500) uIu/ml Urine Color Urine Appearance (Clear) Urine pH (4.5-7.5) Ur Specific [place] (1.000-1.030) Urine Protein (Negative) Urine Glucose (UA) (Negative) Urine Ketones (Negative) Urine Blood (Negative) Urine Nitrite (Negative) Urine Bilirubin (Negative) Urine Urobilinogen (Negative) Ur Leukocyte Esterase (Negative) Salicylates 1.8 L (2.8-20) mg/dl Urine Opiates Screen (Neg) Ur Methadone, Qual (Neg) Acetaminophen < 2 L (10-30) ug/ml Urine Barbiturates (Neg) Ur Phencyclidine (PCP) (Neg) U Amphetamin/Meth Scrn (Neg) MDMA (Ecstasy) Screen (Neg) U Benzodiazepines Scrn (Neg) Ur Cocaine Metabolite (Neg) U Marijuana (THC) Screen (Neg) Ethyl Alcohol mg/dL (0-3) mg/dl COVID-19 Eval Order SARS-CoV-2, RNA, NAAT (NEGATIVE) 06/28/21 06/28/21 06/28/21 Range/Units 11:19 11:19 11:33 WBC (4.8-10.8) K/uL RBC (4.2-5.4) M/uL Hgb (12.0-16.0) g/dL Hct (37-47) % MCV (80-100) fL MCH (25-34) pg MCHC (32-36) g/dL RDW Std Deviation (36.4-46.3) fL RDW Coeff of Wade (11.5-14.5) % Plt Count (130-400) K/uL MPV (7.4-10.4) fL Immature Gran % (Auto) % Neut % (Auto) % Lymph % (Auto) % [place] % (Auto) % Eos % (Auto) % Baso % (Auto) % Neut # (Auto) (1.4-6.5) K/uL Lymph # (Auto) (1.2-3.4) K/uL [place] # (Auto) (0.11-0.59) K/uL Eos # (Auto) (0-0.5) K/uL Baso # (Auto) (0-0.2) K/uL Immature Gran # (Auto) (0.00-0.02) K/uL PT (9.0-12.0) Seconds INR (0.9-1.1) APTT (21.0-31.0) Seconds PTT Ratio Sodium (136-145) mmol/L Potassium (3.5-5.1) mmol/L Chloride (98-107) mmol/L Carbon Dioxide (21-32) mmol/L Anion Gap (3-11) BUN (7-18) mg/dl Creatinine (0.6-1.2) mg/dl Est Cr Clr Drug Dosing ml/min Est GFR ( Amer) ml/min Est GFR (Non-Af Amer) ml/min BUN/Creatinine Ratio (10-20) Glucose (70-99) mg/dl Calcium (8.5-10.1) mg/dl Total Bilirubin (0.2-1) mg/dl AST (15-37) U/L ALT (12-78) U/L Alkaline Phosphatase (45-117) U/L Total Protein (6.4-8.2) gm/dl Albumin (3.4-5.0) gm/dl Globulin (2.5-4.0) gm/dl Albumin/Globulin Ratio (0.9-2) TSH 1.310 (0.300-4.500) uIu/ml Urine Color Yellow Urine Appearance Clear (Clear) Urine pH 5.5 (4.5-7.5) Ur Specific [place] 1.025 (1.000-1.030) Urine Protein Negative (Negative) Urine Glucose (UA) Negative (Negative) Urine Ketones Trace H (Negative) Urine Blood Negative (Negative) Urine Nitrite Negative (Negative) Urine Bilirubin Negative (Negative) Urine Urobilinogen Negative (Negative) Ur Leukocyte Esterase Negative (Negative) Salicylates (2.8-20) mg/dl Urine Opiates Screen (Neg) Ur Methadone, Qual (Neg) Acetaminophen (10-30) ug/ml Urine Barbiturates (Neg) Ur Phencyclidine (PCP) (Neg) U Amphetamin/Meth Scrn (Neg) MDMA (Ecstasy) Screen (Neg) U Benzodiazepines Scrn (Neg) Ur Cocaine Metabolite (Neg) U Marijuana (THC) Screen (Neg) Ethyl Alcohol mg/dL < 3.0 (0-3) mg/dl COVID-19 Eval Order SARS-CoV-2, RNA, NAAT (NEGATIVE) 06/28/21 06/28/21 06/28/21 Range/Units 11:33 12:44 15:32 WBC (4.8-10.8) K/uL RBC (4.2-5.4) M/uL Hgb (12.0-16.0) g/dL Hct (37-47) % MCV (80-100) fL MCH (25-34) pg MCHC (32-36) g/dL RDW Std Deviation (36.4-46.3) fL RDW Coeff of Wade (11.5-14.5) % Plt Count (130-400) K/uL MPV (7.4-10.4) fL Immature Gran % (Auto) % Neut % (Auto) % Lymph % (Auto) % [place] % (Auto) % Eos % (Auto) % Baso % (Auto) % Neut # (Auto) (1.4-6.5) K/uL Lymph # (Auto) (1.2-3.4) K/uL [place] # (Auto) (0.11-0.59) K/uL Eos # (Auto) (0-0.5) K/uL Baso # (Auto) (0-0.2) K/uL Immature Gran # (Auto) (0.00-0.02) K/uL PT 10.1 (9.0-12.0) Seconds INR 1.0 (0.9-1.1) APTT 23.5 (21.0-31.0) Seconds PTT Ratio 0.9 Sodium (136-145) mmol/L Potassium (3.5-5.1) mmol/L Chloride (98-107) mmol/L Carbon Dioxide (21-32) mmol/L Anion Gap (3-11) BUN (7-18) mg/dl Creatinine (0.6-1.2) mg/dl Est Cr Clr Drug Dosing ml/min Est GFR ( Amer) ml/min Est GFR (Non-Af Amer) ml/min BUN/Creatinine Ratio (10-20) Glucose (70-99) mg/dl Calcium (8.5-10.1) mg/dl Total Bilirubin (0.2-1) mg/dl AST (15-37) U/L ALT (12-78) U/L Alkaline Phosphatase (45-117) U/L Total Protein (6.4-8.2) gm/dl Albumin (3.4-5.0) gm/dl Globulin (2.5-4.0) gm/dl Albumin/Globulin Ratio (0.9-2) TSH (0.300-4.500) uIu/ml Urine Color Urine Appearance (Clear) Urine pH (4.5-7.5) Ur Specific [place] (1.000-1.030) Urine Protein (Negative) Urine Glucose (UA) (Negative) Urine Ketones (Negative) Urine Blood (Negative) Urine Nitrite (Negative) Urine Bilirubin (Negative) Urine Urobilinogen (Negative) Ur Leukocyte Esterase (Negative) Salicylates (2.8-20) mg/dl Urine Opiates Screen Neg (Neg) Ur Methadone, Qual Neg (Neg) Acetaminophen (10-30) ug/ml Urine Barbiturates Neg (Neg) Ur Phencyclidine (PCP) Neg (Neg) U Amphetamin/Meth Scrn Neg (Neg) MDMA (Ecstasy) Screen Neg (Neg) U Benzodiazepines Scrn Neg (Neg) Ur Cocaine Metabolite Neg (Neg) U Marijuana (THC) Screen Neg (Neg) Ethyl Alcohol mg/dL (0-3) mg/dl COVID-19 [facility]-2, RNA, NAAT (NEGATIVE) 06/28/21 Range/Units 15:32 WBC (4.8-10.8) K/uL RBC (4.2-5.4) M/uL Hgb (12.0-16.0) g/dL Hct (37-47) % MCV (80-100) fL MCH (25-34) pg MCHC (32-36) g/dL RDW Std Deviation (36.4-46.3) fL RDW Coeff of Wade (11.5-14.5) % Plt Count (130-400) K/uL MPV (7.4-10.4) fL Immature Gran % (Auto) % Neut % (Auto) % Lymph % (Auto) % [place] % (Auto) % Eos % (Auto) % Baso % (Auto) % Neut # (Auto) (1.4-6.5) K/uL Lymph # (Auto) (1.2-3.4) K/uL [place] # (Auto) (0.11-0.59) K/uL Eos # (Auto) (0-0.5) K/uL Baso # (Auto) (0-0.2) K/uL Immature Gran # (Auto) (0.00-0.02) K/uL PT (9.0-12.0) Seconds INR (0.9-1.1) APTT (21.0-31.0) Seconds PTT Ratio Sodium (136-145) mmol/L Potassium (3.5-5.1) mmol/L Chloride (98-107) mmol/L Carbon Dioxide (21-32) mmol/L Anion Gap (3-11) BUN (7-18) mg/dl Creatinine (0.6-1.2) mg/dl Est Cr Clr Drug Dosing ml/min Est GFR ( Amer) ml/min Est GFR (Non-Af Amer) ml/min BUN/Creatinine Ratio (10-20) Glucose (70-99) mg/dl Calcium (8.5-10.1) mg/dl Total Bilirubin (0.2-1) mg/dl AST (15-37) U/L ALT (12-78) U/L Alkaline Phosphatase (45-117) U/L Total Protein (6.4-8.2) gm/dl Albumin (3.4-5.0) gm/dl Globulin (2.5-4.0) gm/dl Albumin/Globulin Ratio (0.9-2) TSH (0.300-4.500) uIu/ml Urine Color Urine Appearance (Clear) Urine pH (4.5-7.5) Ur Specific [place] (1.000-1.030) Urine Protein (Negative) Urine Glucose (UA) (Negative) Urine Ketones (Negative) Urine Blood (Negative) Urine Nitrite (Negative) Urine Bilirubin (Negative) Urine Urobilinogen (Negative) Ur Leukocyte Esterase (Negative) Salicylates (2.8-20) mg/dl Urine Opiates Screen (Neg) Ur Methadone, Qual (Neg) Acetaminophen (10-30) ug/ml Urine Barbiturates (Neg) Ur Phencyclidine (PCP) (Neg) U Amphetamin/Meth Scrn (Neg) MDMA (Ecstasy) Screen (Neg) U Benzodiazepines Scrn (Neg) Ur Cocaine Metabolite (Neg) U Marijuana (THC) Screen (Neg) Ethyl Alcohol mg/dL (0-3) mg/dl COVID-19 Eval Order SARS-CoV-2, RNA, NAAT NEGATIVE (NEGATIVE) Imaging Data Attestation: I personally reviewed and interpreted this imaging study as follows: Radiologist's Impression: Chest X-Ray 06/28/21 11:50 XR chest 1V portable CLINICAL HISTORY: weakness COMPARISON STUDY: November 01, 2020 FINDINGS: No pneumothorax. No pleural effusion. No large infiltrates or consolidative lesions are seen. Cardiomediastinal silhouette is within normal limits in size. No significant pulmonary vascular congestion.. Aorta is tortuous. Osseous structures: Degenerative changes of the spine. Limited exam due to patient's body habitus. IMPRESSION: 1. No acute pulmonary process. ACT 112: Negative or not required by law. The above report was generated using voice recognition software. It may contain grammatical, syntax or spelling errors. Electronically signed by: Vkitoriya Brown DO 06/28/2021 1:04 PM ECG Data Attestation: I personally reviewed and interpreted this ECG as follows: Indication: + toxicologic Rate (beats per minute): 73 Rhythm: + sinus with SA ECG Intervals/blocks: + Normal QRS, + Normal QT and + Normal CA ECG [place]: + Normal ECG ST segments: + Normal ST segments ECG Findings: no PACs or no PVCs Comparison ECG Date: from (10/2012) Change: no significant change MDM Narrative This patient comes in as described above. She was placed in room A5. She had an overdose last night of alcohol but also drank a small amount of insecticide. This was about 14 hours ago. She has stable vital signs and looks well she has had some nausea and diarrhea although seems to be doing better. I have asked established and she was hydrated with IV normal saline. I did discuss the case with Lavern at the [facility] who tells me that this product that she drank called Baythyroid apparently is a pyrethroid and given the fact that is been 12 to 14 hours after taking it it would be symptomatic care at this point. A mental health/toxicologic work-up was done but she was also Hider with IV normal saline and obtained an EKG as well. EKG does not suggest acute ischemic changes or significant arrhythmia. The patient is feeling somewhat better after receiving IV fluids. Her potassium is mildly elevated but she has no other electrolyte or metabolic abnormalities and no suggest acute toxicologic process. She has remained stable. She was medically cleared and was evaluated psychiatric nurse case management. [facility] has been consulted to see her in the ER for possible voluntary admission. [facility] S. will admit him. Impression & Plan Alcohol ingestion, Ingestion of toxin, Depression, Lab test negative for COVID- 19 virus Discharge Plan Visit Data Chief Complaint: Mental Health Evaluation Stated Complaint: SWALLOWED POISON ED Provider: Elton Morejon Discharge Problem: Alcohol ingestion, Ingestion of toxin, Depression, Lab test negative for COVID- 19 virus Patient Disposition: Admitted As Inpatient Discharge Instructions Interventions: ED Discharge Assessment Last Done: 06/28/21 17:34 Discharge Problem: Ingestion of toxin Qualifiers: Encounter type: initial encounter Injury intent: undetermined intent Qualified Code(s): T65.94XA - Toxic effect of unspecified substance, undetermined, initial encounter Depression Qualifiers: Depression Type: unspecified Qualified Code(s): F32.9 - Major depressive disorder, single episode, unspecified
[2021-06-28 12:08] LABS: Bilirubin,Total 0.7 mg/dl (0.2-1); Globulin 3.9 gm/dl (2.5-4.0); Thyroid Stimulating Hormone 1.34 uIu/ml (0.300-4.500); Total Protein 7.9 gm/dl (6.4-8.2)
[2021-06-28 12:10] LABS: Amphetamines+Metham, Urine Neg (Neg); Barbiturates, Urine Neg (Neg); Benzodiazepine, Urine Neg (Neg); Cocaine, Urine Neg (Neg); MDMA (Ecstacy), Urine Neg (Neg); Methadone, Urine Neg (Neg); Opiate, Urine Neg (Neg); Phencyclidine, Urine Neg (Neg)
--- NOTE | 2021-06-28 13:05 | XRay Report ---
XR chest 1V portable CLINICAL HISTORY: weakness COMPARISON STUDY: November 01, 2020 FINDINGS: No pneumothorax. No pleural effusion. No large infiltrates or consolidative lesions are seen. Cardiomediastinal silhouette is within normal limits in size. No significant pulmonary vascular congestion.. Aorta is tortuous. Osseous structures: Degenerative changes of the spine. Limited exam due to patient's body habitus. IMPRESSION: 1. No acute pulmonary process. ACT 112: Negative or not required by law. The above report was generated using voice recognition software. It may contain grammatical, syntax o r spelling errors. Electronically signed by: Viktoriya Brown DO 06/28/2021 1:04 PM
[2021-06-28 13:06] LABS: Partial Thromboplastin Ratio 0.9; Partial Thromboplastin Time 23.5 Seconds (21.0-31.0); Prothrombin Time 10.1 Seconds (9.0-12.0)
[2021-06-28] MEDS ORDERED: SODIUM CHLORIDE 0.65% NA SOLN 45 ML (OCEAN) PRN (17:21)
[2021-06-28] MEDS ORDERED: hydrOXYzine HCl 25 MG TAB PO PRN ×2 (17:21)
[2021-06-28] MEDS ORDERED: MAGNESIUM HYDROXIDE SUSP 30 ML UDC PO PRN (17:21)
[2021-06-28] MEDS ORDERED: BISMUTH SUBSALICYLATE LIQD 236 ML PO PRN (17:21)
[2021-06-28] MEDS ORDERED: ALUMINUM/MAGNESIUM SUSP 30 ML UDC PO PRN (17:21)
[2021-06-28] MEDS ORDERED: diazePAM 5 MG TABLET PO PRN (17:22)
--- NOTE | 2021-06-28 18:10 | Electrocardiogram Report ---
Test Reason : Blood Pressure : / mmHG Vent. Rate : 073 BPM Atrial Rate : 073 BPM P-R Int : 148 ms QRS Dur : 074 ms QT Int : 402 ms P-R-T Axes : 050 058 061 degrees QTc Int : 442 ms Poor data quality, interpretation may be adversely affected Sinus rhythm with marked sinus arrhythmia Otherwise normal ECG When compared with ECG of 31-OCT-2020 13:03, Nonspecific T wave abnormality no longer evident in Inferior leads Confirmed by Bk Katz ([id number]) on 06/28/2021 6:10:40 PM Referred By: REFERRED SELF Confirmed By:Foreign Katz
[2021-06-28] MEDS: ACETAMINOPHEN 325 MG TAB PO PRN (19:16)
--- NOTE | 2021-06-29 14:12 | History & Physical ---
Date of Service June 29, 2021 Impression / Recommendations Impression 55-year-old woman with a history of depression and alcohol abuse presented following a suicide attempt in the context of significant alcohol use, interpersonal familial and financial problems. Patient self aborted her attempt and immediately regretted having done so, but her inability to resist the compulsion to attempt suicide puts her at risk. She will benefit from inpatient hospitalization for purposes of safety, stabilization, and medication management. It is likely that patient's alcohol use is worsened by her underlying anxiety, will attempt to target this anxiety with SSRI medications as well as augment with benzodiazepine diazepam medications both for the purposes of assisting with the alcohol withdrawal as well as assisting with the initiation of higher doses of SSRI therapy. (1) Depression: Depression Type: unspecified Qualified Code(s): F32.9 - Major depressive disorder, single episode, unspecified The patient was admitted to the [facility] ([facility] mental health unit) on every 15 minute checks (behavioral with suicide precautions for safety. The patient will participate in group, recreational, and milieu therapies and will be offered additional individual and family sessions as clinically appropriate. 1patient will be continued on 5 mg of Valium p.o. nightly, Prozac will be increased to 20 mg p.o. every morning. Protective Factors Assessment Employed: Yes ([employer]) Psychiatric History Identifying Data JULIA HUI is a 55-year-old F who currently lives in with her and three adult children, has a history of depression and alcohol abuse, and was admitted on 06/28/21 17:24 on a 201 voluntary commitment for suicide attempt. Chief Complaint "I don't know why i did that, im just under alot of stress". History of Present Illness HPI as per case management " Pt reports that yesterday she "got to the end of her rope". She was drinking beer all day (approx 30 beers) and last evening she drank insecticide in an attempt to end her life. She reports that she drank "maybe 1-2 tablespoons". She states "yesterday everything was just too much and it all came to a head". She reports many stressors to include her being laid off from his job last , her son and his girlfriend are moving out because pt can't get along with son's girlfriend, her job is stressful and "now everyone is mad at me for doing this". She states that before she ingested the insecticide she thought "If I take that how long will it take to kill me? If Im everyone will just let me alone". She denies feeling suicidal today but is very tearful. Pt has a history of depression and is prescribed an anti-depressant by her PCP, Kae Putnam, but she cannot remember the name. She reports that she misses doses frequently because she forgets to take it. She has no history of SI/SA or inpatient treatment. She has no therapist or psychiatrist. She reports an increase in depression in the past few months. She reports that her sleep and appetite are both ok. 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 She reports that she drinks 2-3 beers most days. She denies withdrawal symptoms if she doesn't drink. She does not smoke and she denies drug use. She denies paranoia, delusions and hallucinations. Dr Morejon is recommending inpatient psychiatric treatment following a suicide attempt. Pt is willing for inpatient treatment at this time. Patient arrived on the unit at 17:35, she was oriented to the unit, staff, peers and schedule. She presents pleasant, cooperative, tearful and sad. Patient lives in [place] with her , Merrick and her son and his girlfriend. She has three children ages 28 and twins age 26. 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 She verbalizes that her was recently laid off from there, her son and his GF are moving out of Julia's house because she and the GF do not get along. Patient states her family is always coming to [employer] with their problems and complaints. In addition Julia had Covid in October of 2020 which her boss's blamed her for "bringing to the company"- because the next day her boss was positive. The Boss's put demeaning posts about Julia on Facebook, shaming her for being Covid +. [employer] long standing clients were privy to all of the slander which caused Julia a lot of guilt and shame. 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 When she returned to work in May her boss "didn't know what she was talking about". She verbalizes feeling like she got to her "breaking point, like how much do I have to take". She began drinking beers yesterday, she typically has "a few" and just kept drinking due to her frustration with work, financial burden with being recently laid off and familial issues. She had Baythroid (insecticide) that she states she stared at for hours. She ingested "a few tablespoons" in an attempt to end her life. She expresses remorse and guilt over the incident during this assessment. She verbalizes being scared that she will "have a nervous break down". She explained that her mother had one when patient was 10 years old and left the family, and came back 9 years later like nothing h appened. Julia is worried she will "leave". She has guilt that this happened last night and her daughter had a job interview today. She has never been inpatient and never had mental health outpatient services. She sees Dr. Putnam in [place], who initiated/prescribes her Prozac. Julia states "I take it sometimes, but I don't remember to take it everyday". She is agreeable to medication adjustments if recommended. " Patient Dorst the above information is accurate. Sided her major stressors as relationship with her son and his current girlfriend, in addition to financial stress and stress from the workplace. Patient acknowledges always drinking but states that her drinking intensified significantly during the pandemic. She reports that Monday after an intense argument with her son and feeling as if things would be better off without her she looked and saw a can of insecticide sitting on herself and was compulsed to take the insecticide feeling that it would end her life. Patient stated that immediately after ingesting the medication she regretted her decision and made attempts to spit out the insecticide. She then informed her family what had happened who watched her overnight upon the patient not feeling better medically decided to present to the ED. Patient states that her depression has been long lasting for several years, but is significantly intensified due to the current situation and stress. She denies any manic or psychotic symptoms. She denies any family history of manic or psychotic symptoms. She does acknowledge some benefit of the Prozac medication and has been mostly compliant with it at home. She understands that her drinking is problematic but feels as if she can cut back on her own if her mood symptoms are adequately treated. Patient denies any legal trouble currently. Patient denies any other drug use. Past Psychiatric History Current Psychiatric Diagnosis: depression Describe Attempts in the Past: gun, freezing to outside in the winter Allergies Allergy/AdvReac Type Severity Reaction Status Date / Time verapamil Allergy Unknown Hives Verified 12/24/20 07:28 Home Medications Medication Instructions Recorded Confirmed Type fluoxetine 10 mg capsule 10 mg PO QAM 10/31/20 06/28/21 History levothyroxine 125 mcg tablet 125 mcg PO QAM 10/31/20 06/28/21 History oxybutynin chloride 5 mg tablet 5 mg PO QID 10/31/20 06/28/21 History pantoprazole 40 mg tablet,delayed 40 mg PO BID 10/31/20 06/28/21 History release Family History Family History of: Other-List under Comment Family Mental Health History Comment: States mother had "nervous break down" Alcohol History Hx of Alcohol Use Over the Past 12 Months: Yes (2-3 beers 3-5 days a week) AUDIT Total Score: 10 Smoking Use Have You Smoked or Used Tobacco Products in the Last 30 Days: No tobacco type: cigarettes Smoking Status: Never smoker Substance History Hx of Prescription Med Misuse Over the Past 12 Months: No Hx of Over the Counter Med Misuse Over the Past 12 Months: No Hx of Inhalent Misuse Over the Past 12 Months: No Hx of Organic Substance Use Over the Past 12 Months: No Hx of Illegal Substances/Street Drug Use Over Past 12 Months: No Problems as a Result of Past Substance Use: Attempted Suicide Personal History Living Arrangements: Home Highest Grade Completed: Vocational Training Highest Grade Completed 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 Marital Status: Beliefs That Will Affect Care: None Patient History Medical History Acid reflux controlled Anxiety Diverticulitis remote hx (10+ years ago) > pt had colon resection History of COVID-19 10/22/20 (tested positive at [facility])- initial symptoms of cough, dyspnea, headache/now resolved, per patient surgeon requested preop COVID test be done 12/17 at PAT visit Hypothyroid Morbid obesity Urinary incontinence chronic since hysterectomy Surgical History History of colon resection 10+ years ago History of colonoscopy History of endoscopy History of hysterectomy 2002 History of right knee surgery 2007 Family History Brother Family history of diabetes mellitus Brother Family history of diabetes mellitus Mother Family history of diabetes mellitus Social History Smoking Status: Never smoker Second Hand Exposure: No; Hx Alcohol Use: Yes Alcohol type: beer Hx Substance Use: No Preferred Language: Belarusian Communication Ability: Effective Leather Grader Required: No Beliefs That Will Affect Care: None Current Living Situation: Spouse and Family Feels Safe at Home: Yes Assistive Devices: Glasses Assistive Devices Comment: patient needs her glasses dropped off Review of Systems Review of Systems: All systems reviewed & are unremarkable except as noted in HPI & below Physical Exam Psychiatric: Orientation: alert and oriented x 3 Apperance: + disheveled Eye Contact: + poor eye contact Motor Behavior: no abnormal motor movements Speech: normal rate/rhythm/volume of speech Affect: + depressed affect, + anxious affect and + tearful affect Mood: + depressed mood, + anxious mood and + dysphoric mood Thought Process: goal directed thought process and linear/logical thought process Thought Content: reality based without delusions Suicidal Thoughts: denies suicidal thoughts, denies suicidal plan and denies suicidal intent recent self aborted attempt. Homicidal Thoughts: denies homicidal thoughts, denies homicidal plan and denies homicidal intent Hallucinations: no auditory hallucinations and no visual hallucinations Cognition: recent memory grossly intact Estimated Intelligence: average estimated intelligence Insight: + limited insight Judgement: + poor judgement Vital Signs (Past 24 Hours): Last Vital Signs Temp 36.7 C 06/29/21 06:41 Pulse 71 06/29/21 06:41 Resp 16 06/29/21 06:41 BP 122/69 06/29/21 06:41 Pulse Ox 100 06/28/21 21:36 Results & Data ([facility]) Laboratory Results Laboratory Results - last 24 hr 06/28/21 06/28/21 15:32 15:32 COVID-19 [facility] SARS-CoV-2, RNA, NAAT NEGATIVE Current Inpatient Medications Current Inpatient Medications: Current Inpatient Medications Acetaminophen (Acetaminophen 325 Mg Tab) 650 mg PO Q4H PRN PRN Reason: Headache or Minor Fever Stop: 07/28/21 17:20 Last Admin: 06/28/21 19:16 Dose: 650 mg Documented by: Al Hydrox/Mg Hydrox/Simethicone (Aluminum/Magnesium Susp 30 Ml Udc) 30 ml PO Q4H PRN PRN Reason: GI Upset Stop: 07/28/21 17:20 Bismuth Subsalicylate (Bismuth Subsalicylate Liqd 236 Ml) 15 ml PO PRN PRN PRN Reason: Loose Stool Stop: 07/28/21 17:20 Diazepam (Diazepam 5 Mg Tablet) 5 mg PO Q6 PRN PRN Reason: Anxiety Stop: 07/28/21 17:21 Last Admin: 06/28/21 19:16 Dose: 5 mg Documented by: Hydroxyzine HCl (Hydroxyzine Hcl 25 Mg Tab) 50 mg PO HSZ PRN PRN Reason: Insomnia Stop: 07/28/21 17:20 Hydroxyzine HCl (Hydroxyzine Hcl 25 Mg Tab) 25 mg PO Q4H PRN PRN Reason: Anxiety Stop: 07/28/21 17:20 Magnesium Hydroxide (Magnesium Hydroxide Susp 30 Ml Udc) 30 ml PO DAILY PRN PRN Reason: Constipation Stop: 07/28/21 17:20 Sodium Chloride (Sodium Chloride 0.65% Na Soln 45 Ml ([place])) 1 - 2 sprays NA PRN PRN PRN Reason: Nasal Dryness/Congestion Stop: 07/28/21 17:20
[2021-06-29] MEDS ORDERED: diazePAM 2 MG TABLET PO PRN (14:50)
[2021-06-29] MEDS: ACETAMINOPHEN 325 MG TAB PO PRN (14:53)
[2021-06-29] MEDS: OXYBUTYNIN CHLORIDE 5 MG TAB PO SCH (16:38)
[2021-06-29] MEDS ORDERED: OXYBUTYNIN CHLORIDE 5 MG TAB PO SCH (17:00)
[2021-06-29] MEDS: PANTOprazole 40 MG TAB PO SCH (21:43)
[2021-06-29] MEDS: diazePAM 5 MG TABLET PO SCH (21:44)
[2021-06-30] MEDS ORDERED: LEVOTHYROXINE SODIUM 125 MCG TABLET PO SCH (08:00)
[2021-06-30] MEDS ORDERED: LEVOTHYROXINE SODIUM 175 MCG TABLET PO SCH (08:00)
[2021-06-30] MEDS: OXYBUTYNIN CHLORIDE 5 MG TAB PO SCH ×2 (09:00→17:01)
[2021-06-30] MEDS: LEVOTHYROXINE SODIUM 125 MCG TABLET PO SCH (09:00)
[2021-06-30] MEDS: PANTOprazole 40 MG TAB PO SCH ×2 (09:00→20:51)
[2021-06-30] MEDS: FLUoxetine HCL 20 MG CAP PO SCH (09:00)
--- NOTE | 2021-06-30 14:31 | Psychiatric Progress Note ---
Date of Service June 30, 2021 Impression / Recommendations Impression 55-year-old woman with a history of depression and alcohol abuse presented following a suicide attempt in the context of significant alcohol use, interpersonal familial and financial problems. Patient self aborted her attempt and immediately regretted having done so, but her inability to resist the compulsion to attempt suicide puts her at risk. She will benefit from inpatient hospitalization for purposes of safety, stabilization, and medication management. It is likely that patient's alcohol use is worsened by her underlying anxiety, will attempt to target this anxiety with SSRI medications as well as augment with benzodiazepine diazepam medications both for the purposes of assisting with the alcohol withdrawal as well as assisting with the initiation of higher doses of SSRI therapy. (1) Depression: The patient was admitted to the [facility] ([facility] mental health unit) on every 15 minute checks (behavioral with suicide precautions for safety. The patient will participate in group, recreational, and milieu therapies and will be offered additional individual and family sessions as clinically appropriate. 06/30/2021we will continue on the same regimen for now. Patient still struggling with poor mood. 06/29/2021atient will be continued on 5 mg of Valium p.o. nightly, Prozac will be increased to 20 mg p.o. every morning. Protective Factors Assessment Employed: Yes ([employer]) Interval History Chief Complaint "I don't know I just want to go home". Review of Systems Sleep Information Total Hours of Sleep: 7.5 Sleep Comments: pt on q-15 minute checks Meal Information Percent Meal Consumed - Breakfast: 100 Percent Meal Consumed - Lunch: 100 Percent Meal Consumed - Dinner: 100 Subjective Subjective Patient seen, chart reviewed and case discussed with treatment team, nursing and social work. Patient reports a decent night of sleep and strong appetite. No side effects reported or observed. Regarding mood, patient was distraught this morning and was requesting to be sent home. She was worried about work and finances and seem to have poor perspective regarding her circumstances for admission. She was able to be talked down and redirected and eventually was seen out of her room and interacting with peers appropriately. Attended groups and contributed meaningfully. I spent 30 minutes with the patient, 50% of which was dedicated to counselling and coordination of care. Physical Exam Psychiatric Orientation: alert and oriented x 3 Apperance: + disheveled Eye Contact: + poor eye contact Motor Behavior: no abnormal motor movements Speech: normal rate/rhythm/volume of speech Affect: + depressed affect, + anxious affect and + tearful affect Mood: + depressed mood, + anxious mood and + dysphoric mood Thought Process: goal directed thought process and linear/logical thought process Thought Content: reality based without delusions Suicidal Thoughts: denies suicidal thoughts, denies suicidal plan and denies suicidal intent Homicidal Thoughts: denies homicidal thoughts, denies homicidal plan and denies homicidal intent Hallucinations: no auditory hallucinations and no visual hallucinations Cognition: recent memory grossly intact Estimated Intelligence: average estimated intelligence Insight: + limited insight Judgement: + poor judgement Vital Signs (Past 24 Hours) Last Vital Signs Temp 36.7 C 06/30/21 06:17 Pulse 71 06/30/21 06:18 Resp 18 06/30/21 06:17 BP 125/81 06/30/21 06:18 Pulse Ox 100 06/28/21 21:36 Results & Data ([facility]) Current Inpatient Medications Current Inpatient Medications: Current Inpatient Medications Acetaminophen (Acetaminophen 325 Mg Tab) 650 mg PO Q4H PRN PRN Reason: Headache or Minor Fever Stop: 07/28/21 17:20 Last Admin: 06/29/21 14:53 Dose: 650 mg Documented by: Al Hydrox/Mg Hydrox/Simethicone (Aluminum/Magnesium Susp 30 Ml Udc) 30 ml PO Q4H PRN PRN Reason: GI Upset Stop: 07/28/21 17:20 Last Admin: 06/29/21 16:37 Dose: 30 ml Documented by: Bismuth Subsalicylate (Bismuth Subsalicylate Liqd 236 Ml) 15 ml PO PRN PRN PRN Reason: Loose Stool Stop: 07/28/21 17:20 Diazepam (Diazepam 5 Mg Tablet) 5 mg PO HS DEREJE Stop: 07/29/21 21:59 Last Admin: 06/29/21 21:44 Dose: 5 mg Documented by: Diazepam (Diazepam 2 Mg Tablet) 2 mg PO Q6 PRN PRN Reason: Anxiety Stop: 07/29/21 14:49 Last Admin: 06/30/21 09:33 Dose: 2 mg Documented by: Fluoxetine HCl (Fluoxetine Hcl 20 Mg Cap) 20 mg PO QAM DEREJE Stop: 07/30/21 08:59 Last Admin: 06/30/21 09:00 Dose: 20 mg Documented by: Hydroxyzine HCl (Hydroxyzine Hcl 25 Mg Tab) 50 mg PO HSZ PRN PRN Reason: Insomnia Stop: 07/28/21 17:20 Hydroxyzine HCl (Hydroxyzine Hcl 25 Mg Tab) 25 mg PO Q4H PRN PRN Reason: Anxiety Stop: 07/28/21 17:20 Levothyroxine Sodium (Levothyroxine Sodium 125 Mcg Tablet) 125 mcg PO DAILYBB DEREJE Stop: 07/30/21 07:59 Last Admin: 06/30/21 09:00 Dose: 125 mcg Documented by: Magnesium Hydroxide (Magnesium Hydroxide Susp 30 Ml Udc) 30 ml PO DAILY PRN PRN Reason: Constipation Stop: 07/28/21 17:20 Oxybutynin Chloride (Oxybutynin Chloride 5 Mg Tab) 10 mg PO BID17 [facility] Stop: 07/29/21 16:59 Last Admin: 06/30/21 09:00 Dose: 10 mg Documented by: Pantoprazole Sodium (Pantoprazole 40 Mg Tab) 40 mg PO BID DEREJE Stop: 07/29/21 20:59 Last Admin: 06/30/21 09:00 Dose: 40 mg Documented by: Sodium Chloride (Sodium Chloride 0.65% Na Soln 45 Ml ([place])) 1 - 2 sprays NA PRN PRN PRN Reason: Nasal Dryness/Congestion Stop: 07/28/21 17:20 Mental Health & Subst Abuse Tx Psychiatrist Name of Psychiatrist: referral made to [place] [facility] Name of Therapist: Sabas Wilkinson Therapist's Date of Therapist Appointment: 07/12/21 Time of Therapist Appointment: 9:30 a.m. Therapy Appointment Comment: In person - [address] [facility], [address], [place] [employer] Name of Water Truck Driver: . Post Discharge Appointments Primary Care Physician Name Of Family Doctor: DOUG Ortiz Primary [facility] Date of Appointment with PCP: 07/06/21 Time of Appointment with PCP: 10:45am Provider Appointment Comment: [address] [facility] Contact Information Discharge Discharge Address: [address] [place] [address] (1) Depression Depression Type: unspecified Qualified Code(s): F32.9 - Major depressive disorder, single episode, unspecified
[2021-06-30] MEDS: diazePAM 5 MG TABLET PO SCH (20:51)
[2021-07-01] MEDS: ACETAMINOPHEN 325 MG TAB PO PRN (03:04)
[2021-07-01] MEDS: PANTOprazole 40 MG TAB PO SCH ×2 (08:54→20:57)
[2021-07-01] MEDS: FLUoxetine HCL 20 MG CAP PO SCH (08:54)
[2021-07-01] MEDS: OXYBUTYNIN CHLORIDE 5 MG TAB PO SCH ×2 (08:54→17:11)
[2021-07-01] MEDS: LEVOTHYROXINE SODIUM 125 MCG TABLET PO SCH (08:54)
--- NOTE | 2021-07-01 14:36 | Psychiatric Progress Note ---
Date of Service July 01, 2021 Impression / Recommendations Impression 55-year-old woman who presented following a impulsive suicide attempt that she self aborted. Patient immediately regretted her actions but did acknowledge difficulties managing stress in the home and workplace. She will benefit from inpatient hospitalization for purposes of safety, stabilization, medication management. (1) Depression: The patient was admitted to the [facility] ([facility] mental health unit) on every 15 minute checks (behavioral with suicide precautions for safety. The patient will participate in group, recreational, and milieu therapies and will be offered additional individual and family sessions as clinically appropriate. 06/30/2021we will continue on the same regimen for now. Patient still struggling with poor mood. 06/29/2021atient will be continued on 5 mg of Valium p.o. nightly, Prozac will be increased to 20 mg p.o. every morning. Protective Factors Assessment Employed: Yes ([employer]) Interval History Chief Complaint " Thank you, I'm feeling much better" Review of Systems Sleep Information Total Hours of Sleep: 6.25 Sleep Comments: pt on q-15 minute checks Meal Information Percent Meal Consumed - Breakfast: 100 Percent Meal Consumed - Lunch: 100 Percent Meal Consumed - Dinner: 100 Subjective Subjective Patient was seen & assessed and interval progress reviewed with treatment team nursing and social work. Patient is reporting feeling much better. She attributes this to the sleep as well as the medications she has received. She continues to state that she is no longer suicidal as well as expressed regret for her impulsive actions. She denies any current impulses or compulsions to hurt herself. Patient was spoken to about the medication she is using for sleep and that the potentially addictive nature of it. She is agreeable to try Seroquel for sleep instead tonight. Patient is eating well and sleeping well. Public Affairs Manager was present for patient's family meeting today where was supportive and understanding and seemed to appreciate the mental difficulties that the patient was experiencing. He is eager for return home and grateful for the progress she has made thus far. Patient was reassured and comforted by her support and was also eager to return to him. I spent 30 minutes with the patient, 50% of which was dedicated to counselling and coordination of care. Physical Exam Psychiatric Orientation: alert and oriented x 3 Apperance: + disheveled Eye Contact: + poor eye contact Motor Behavior: no abnormal motor movements Speech: normal rate/rhythm/volume of speech Affect: + depressed affect, + anxious affect and + tearful affect Mood: + depressed mood, + anxious mood and + dysphoric mood Thought Process: goal directed thought process and linear/logical thought process Thought Content: reality based without delusions Suicidal Thoughts: denies suicidal thoughts, denies suicidal plan and denies suicidal intent Homicidal Thoughts: denies homicidal thoughts, denies homicidal plan and denies homicidal intent Hallucinations: no auditory hallucinations and no visual hallucinations Cognition: recent memory grossly intact Estimated Intelligence: average estimated intelligence Insight: + limited insight Judgement: + poor judgement Vital Signs (Past 24 Hours) Last Vital Signs Temp 36.7 C 07/01/21 06:00 Pulse 90 07/01/21 06:20 Resp 18 07/01/21 06:00 BP 138/87 07/01/21 06:20 Pulse Ox 100 06/28/21 21:36 Results & Data ([facility]) Current Inpatient Medications Current Inpatient Medications: Current Inpatient Medications Acetaminophen (Acetaminophen 325 Mg Tab) 650 mg PO Q4H PRN PRN Reason: Headache or Minor Fever Stop: 07/28/21 17:20 Last Admin: 07/01/21 03:04 Dose: 650 mg Documented by: Al Hydrox/Mg Hydrox/Simethicone (Aluminum/Magnesium Susp 30 Ml Udc) 30 ml PO Q4H PRN PRN Reason: GI Upset Stop: 07/28/21 17:20 Last Admin: 06/29/21 16:37 Dose: 30 ml Documented by: Bismuth Subsalicylate (Bismuth Subsalicylate Liqd 236 Ml) 15 ml PO PRN PRN PRN Reason: Loose Stool Stop: 07/28/21 17:20 Diazepam (Diazepam 2 Mg Tablet) 2 mg PO Q6 PRN PRN Reason: Anxiety Stop: 07/29/21 14:49 Last Admin: 06/30/21 09:33 Dose: 2 mg Documented by: Fluoxetine HCl (Fluoxetine Hcl 20 Mg Cap) 20 mg PO QAM DEREJE Stop: 07/30/21 08:59 Last Admin: 07/01/21 08:54 Dose: 20 mg Documented by: Hydroxyzine HCl (Hydroxyzine Hcl 25 Mg Tab) 50 mg PO HSZ PRN PRN Reason: Insomnia Stop: 07/28/21 17:20 Hydroxyzine HCl (Hydroxyzine Hcl 25 Mg Tab) 25 mg PO Q4H PRN PRN Reason: Anxiety Stop: 07/28/21 17:20 Levothyroxine Sodium (Levothyroxine Sodium 125 Mcg Tablet) 125 mcg PO DAILYBB [facility] Stop: 07/30/21 07:59 Last Admin: 07/01/21 08:54 Dose: 125 mcg Documented by: Magnesium Hydroxide (Magnesium Hydroxide Susp 30 Ml Udc) 30 ml PO DAILY PRN PRN Reason: Constipation Stop: 07/28/21 17:20 Oxybutynin Chloride (Oxybutynin Chloride 5 Mg Tab) 10 mg PO BID17 [facility] Stop: 07/29/21 16:59 Last Admin: 07/01/21 08:54 Dose: 10 mg Documented by: Pantoprazole Sodium (Pantoprazole 40 Mg Tab) 40 mg PO BID DEREJE Stop: 07/29/21 20:59 Last Admin: 07/01/21 08:54 Dose: 40 mg Documented by: Sodium Chloride (Sodium Chloride 0.65% Na Soln 45 Ml ([place])) 1 - 2 sprays NA PRN PRN PRN Reason: Nasal Dryness/Congestion Stop: 07/28/21 17:20 Mental Health & Subst Abuse Tx Psychiatrist Name of Psychiatrist: referral made to [facility]ment Comment: is on waiting list as of 07/01/21 Therapist Name of Therapist: Sabas Wilkinson Therapist's Date of Therapist Appointment: 07/12/21 Time of Therapist Appointment: 9:30 a.m. Therapy Appointment Comment: In person - [address] [facility], [address], [place] Social Work Job Titles Name of Social Work Job Titles: . Post Discharge Appointments Primary Care Physician Name Of Family Doctor: [facility] Date of Appointment with PCP: 07/06/21 Time of Appointment with PCP: 10:45am Provider Appointment Comment: [address] [facility] Contact Information Discharge Discharge Address: [address] [place] [address], [place] [address] (1) Depression Depression Type: unspecified Qualified Code(s): F32.9 - Major depressive disorder, single episode, unspecified
[2021-07-01] MEDS ORDERED: QUEtiapine FUMARATE 25 MG TABLET PO SCH (22:00)
[2021-07-02] MEDS: OXYBUTYNIN CHLORIDE 5 MG TAB PO SCH (08:55)
[2021-07-02] MEDS: FLUoxetine HCL 20 MG CAP PO SCH (08:55)
[2021-07-02] MEDS: LEVOTHYROXINE SODIUM 125 MCG TABLET PO SCH (08:55)
[2021-07-02] MEDS: PANTOprazole 40 MG TAB PO SCH (08:56)
--- NOTE | 2021-07-02 14:21 | Discharge Summary ---
Date of Service July 02, 2021 History of Present Illness HPI as per case management " Pt reports that yesterday she "got to the end of her rope". She was drinking beer all day (approx 30 beers) and last evening she drank insecticide in an attempt to end her life. She reports that she drank "maybe 1-2 tablespoons". She states "yesterday everything was just too much and it all came to a head". She reports many stressors to include her being laid off from his job last , her son and his girlfriend are moving out because pt can't get along with son's girlfriend, her job is stressful and "now everyone is mad at me for doing this". She states that before she ingested the insecticide she thought "If I take that how long will it take to kill me? If Im everyone will just let me alone". She denies feeling suicidal today but is very tearful. Pt has a history of depression and is prescribed an anti-depressant by her PCP, Kae Putnam, but she cannot remember the name. She reports that she misses doses frequently because she forgets to take it. She has no history of SI/SA or inpa tient treatment. She has no therapist or psychiatrist. She reports an increase in depression in the past few months. She reports that her sleep and appetite are both ok. 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 She reports that she drinks 2-3 beers most days. She denies withdrawal symptoms if she doesn't drink. She does not smoke and she denies drug use. She denies paranoia, delusions and hallucinations. Dr Morejon is recommending inpatient psychiatric treatment following a suicide attempt. Pt is willing for inpatient treatment at this time. Patient arrived on the unit at 17:35, she was oriented to the unit, staff, peers and schedule. She presents pleasant, cooperative, tearful and sad. Patient lives in [place] with her , Merrick and her son and his girlfriend. She has three children ages 28 and twins age 26. She works at [employer] in [employer] where she has worked for 30 years. She verbalizes that her was recently laid off from there, her son and his GF are moving out of [employer] house because she and the GF do not get along. Patient states her family is always coming to Julia with their problems and complaints. In addition Julia had Covid in October of 2020 which her boss's blamed her for "bringing to the company"- because the next day her boss was positive. The Boss's put demeaning posts about Julia on Facebook, shaming her for being Covid +. Julia's long standing clients were privy to all of the slander which caused Julia a lot of guilt and shame. 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 When she returned to work in May her boss "didn't know what she was talking about". She verbalizes feeling like she got to her "breaking point, like how much do I have to take". She began drinking beers yesterday, she typically has "a few" and just kept drinking due to her frustration with work, financial burden with being recently laid off and familial issues. She had Baythroid (insecticide) that she states she stared at for hours. She ingested "a few tablespoons" in an attempt to end her life. She expresses remorse and guilt over the incident during this assessment. She verbalizes being scared that she will "have a nervous break down". She explained that her mother had one when patient was 10 years old and left the family, and came back 9 years later like nothing happened. Julia is worried she will "leave". She has guilt that this happened last night and her daughter had a job interview today. She has never been inpatient and never had mental health outpatient services. She sees Dr. Putnam in [place], who initiated/prescribes her Prozac. Julia states "I take it sometimes, but I don't remember to take it everyday". She is agreeable to medication adjustments if recommended. " Patient Dorst the above information is accurate. Sided her major stressors as relationship with her son and his current girlfriend, in addition to financial stress and stress from the workplace. Patient acknowledges always drinking but states that her drinking intensified significantly during the pandemic. She reports that Monday after an intense argument with her son and feeling as if things would be better off without her she looked and saw a can of insecticide sitting on herself and was compulsed to take the insecticide feeling that it would end her life. Patient stated that immediately after ingesting the medication she regretted her decision and made attempts to spit out the insecticide. She then informed her family what had happened who watched her overnight upon the patient not feeling better medically decided to present to the ED. Patient states that her depression has been long lasting for several years, but is significantly intensified due to the current situation and stress. She denies any manic or psychotic symptoms. She denies any family history of manic or psychotic symptoms. She does acknowledge some benefit of the Prozac medication and has been mostly compliant with it at home. She understands that her drinking is problematic but feels as if she can cut back on her own if her mood symptoms are adequately treated. Patient denies any legal trouble currently. Patient denies any other drug use. Physical Exam Psychiatric Orientation: alert and oriented x 3 Apperance: + disheveled Eye Contact: + poor eye contact Motor Behavior: no abnormal motor movements Speech: normal rate/rhythm/volume of speech Affect: + depressed affect, + anxious affect and + tearful affect Mood: + depressed mood, + anxious mood and + dysphoric mood Thought Process: goal directed thought process and linear/logical thought process Thought Content: reality based without delusions Suicidal Thoughts: denies suicidal thoughts, denies suicidal plan and denies suicidal intent Homicidal Thoughts: denies homicidal thoughts, denies homicidal plan and denies homicidal intent Hallucinations: no auditory hallucinations and no visual hallucinations Cognition: recent memory grossly intact Estimated Intelligence: average estimated intelligence Insight: + limited insight Judgement: + poor judgement Vital Signs (Past 24 Hours) Last Vital Signs Temp 36.6 C 07/02/21 10:22 Pulse 71 07/02/21 10:22 Resp 16 07/02/21 10:22 BP 125/81 07/02/21 10:22 Pulse Ox 100 07/02/21 10:22 Principal Diagnosis Major Depressive Disorder Psychiatric Data See daily stay summary. In short, safety was maintained, and the patient was cooperative with care. Medication changes included uptitration of Prozac to 20mg from 10mg and they tolerated this well. Patient was also provided with 50mg of Seroquel to aid in her sleep. Throughout her stay here, patient continued to adamantly deny any suicidal ideation and maintained that this was an impulsive act meet in a stressful moment. A family session was held and safety plan was completed prior to discharge. It was confirmed that patient does not have access to guns and that the bottle of insecticide was removed from her direct line of sight with her Merrick. Day of Discharge Assessment Today the patient voices readiness for discharge. They note improvement in mood and deny thoughts to harm self or others. Thoughts remain organized and they are improved from admission. There is no evidence of psychosis. They agree to take medications as prescribed and keep follow-up appointments. They are stable for discharge to outpatient level of care. Advance Directives Advance Directives Information Provided: Yes Advance Directives: No Mental Health Advance Directive: No Advance Directives on File: No Living Will: No Power of Lidding Machine Operator: No Advance Directives Reason:: Declines as Mental Health Visit. Protective Factors Assessment Employed: Yes ([employer]) Tobacco Cessation at Discharge Tobacco Cessation Medication Prescribed at Discharge: Not Applicable/Non-Smoker Discharge Data Lab Results 06/28/21 06/28/21 06/28/21 11:19 11:19 11:19 WBC 5.36 RBC 4.71 Hgb 14.8 Hct 43.7 MCV 92.8 MCH 31.4 MCHC 33.9 RDW Std Deviation 47.0 H RDW Coeff of Wade 13.8 Plt Count 281 MPV 9.7 Immature Gran % (Auto) 0.4 Neut % (Auto) 73.5 Lymph % (Auto) 19.2 [place] % (Auto) 6.0 Eos % (Auto) 0.7 Baso % (Auto) 0.2 Neut # (Auto) 3.94 Lymph # (Auto) 1.03 L [place] # (Auto) 0.32 Eos # (Auto) 0.04 Baso # (Auto) 0.01 Immature Gran # (Auto) 0.02 PT INR APTT PTT Ratio Sodium 138 Potassium 5.4 H Chloride 108 H Carbon Dioxide 26 Anion Gap 4.0 BUN 12 Creatinine 0.73 Est Cr Clr Drug Dosing 110.1 Est GFR ( Amer) 108.2 Est GFR (Non-Af Amer) 93.4 BUN/Creatinine Ratio 16.7 Glucose 118 H Calcium 9.5 Total Bilirubin 0.7 AST 20 ALT 37 Alkaline Phosphatase 66 Total Protein 7.9 Albumin 4.0 Globulin 3.9 Albumin/Globulin Ratio 1.0 TSH 1.340 Urine Color Urine Appearance Urine pH Ur Specific [place] Urine Protein Urine Glucose (UA) Urine Ketones Urine Blood Urine Nitrite Urine Bilirubin Urine Urobilinogen Ur Leukocyte Esterase Salicylates 1.8 L Urine Opiates Screen Ur Methadone, Qual Acetaminophen < 2 L Urine Barbiturates Ur Phencyclidine (PCP) U Amphetamin/Meth Scrn MDMA (Ecstasy) Screen U Benzodiazepines Scrn Ur Cocaine Metabolite U Marijuana (THC) Screen Ethyl Alcohol mg/dL COVID-19 Eval Order SARS-CoV-2, RNA, NAAT 06/28/21 06/28/21 06/28/21 11:19 11:19 11:33 WBC RBC Hgb Hct MCV MCH MCHC RDW Std Deviation RDW Coeff of Wade Plt Count MPV Immature Gran % (Auto) Neut % (Auto) Lymph % (Auto) [place] % (Auto) Eos % (Auto) Baso % (Auto) Neut # (Auto) Lymph # (Auto) [place] # (Auto) Eos # (Auto) Baso # (Auto) Immature Gran # (Auto) PT INR APTT PTT Ratio Sodium Potassium Chloride Carbon Dioxide Anion Gap BUN Creatinine Est Cr Clr Drug Dosing Est GFR ( Amer) Est GFR (Non-Af Amer) BUN/Creatinine Ratio Glucose Calcium Total Bilirubin AST ALT Alkaline Phosphatase Total Protein Albumin Globulin Albumin/Globulin Ratio TSH 1.310 Urine Color Yellow Urine Appearance Clear Urine pH 5.5 Ur Specific [place] 1.025 Urine Protein Negative Urine Glucose (UA) Negative Urine Ketones Trace H Urine Blood Negative Urine Nitrite Negative Urine Bilirubin Negative Urine Urobilinogen Negative Ur Leukocyte Esterase Negative Salicylates Urine Opiates Screen Ur Methadone, Qual Acetaminophen Urine Barbiturates Ur Phencyclidine (PCP) U Amphetamin/Meth Scrn MDMA (Ecstasy) Screen U Benzodiazepines Scrn Ur Cocaine Metabolite U Marijuana (THC) Screen Ethyl Alcohol mg/dL < 3.0 COVID-19 Eval Order SARS-CoV-2, RNA, NAAT 06/28/21 06/28/21 06/28/21 11:33 12:44 15:32 WBC RBC Hgb Hct MCV MCH MCHC RDW Std Deviation RDW Coeff of Wade Plt Count MPV Immature Gran % (Auto) Neut % (Auto) Lymph % (Auto) [place] % (Auto) Eos % (Auto) Baso % (Auto) Neut # (Auto) Lymph # (Auto) [place] # (Auto) Eos # (Auto) Baso # (Auto) Immature Gran # (Auto) PT 10.1 INR 1.0 APTT 23.5 PTT Ratio 0.9 Sodium Potassium Chloride Carbon Dioxide Anion Gap BUN Creatinine Est Cr Clr Drug Dosing Est GFR ( Amer) Est GFR (Non-Af Amer) BUN/Creatinine Ratio Glucose Calcium Total Bilirubin AST ALT Alkaline Phosphatase Total Protein Albumin Globulin Albumin/Globulin Ratio TSH Urine Color Urine Appearance Urine pH Ur Specific [place] Urine Protein Urine Glucose (UA) Urine Ketones Urine Blood Urine Nitrite Urine Bilirubin Urine Urobilinogen Ur Leukocyte Esterase Salicylates Urine Opiates Screen Neg Ur Methadone, Qual Neg Acetaminophen Urine Barbiturates Neg Ur Phencyclidine (PCP) Neg U Amphetamin/Meth Scrn Neg MDMA (Ecstasy) Screen Neg U Benzodiazepines Scrn Neg Ur Cocaine Metabolite Neg U Marijuana (THC) Screen Neg Ethyl Alcohol mg/dL COVID-19 Eval [facility] SARS-CoV-2, RNA, NAAT 06/28/21 15:32 WBC RBC Hgb Hct MCV MCH MCHC RDW Std Deviation RDW Coeff of Wade Plt Count MPV Immature Gran % (Auto) Neut % (Auto) Lymph % (Auto) [place] % (Auto) Eos % (Auto) Baso % (Auto) Neut # (Auto) Lymph # (Auto) [place] # (Auto) Eos # (Auto) Baso # (Auto) Immature Gran # (Auto) PT INR APTT PTT Ratio Sodium Potassium Chloride Carbon Dioxide Anion Gap BUN Creatinine Est Cr Clr Drug Dosing Est GFR ( Amer) Est GFR (Non-Af Amer) BUN/Creatinine Ratio Glucose Calcium Total Bilirubin AST ALT Alkaline Phosphatase Total Protein Albumin Globulin Albumin/Globulin Ratio TSH Urine Color Urine Appearance Urine pH Ur Specific [place] Urine Protein Urine Glucose (UA) Urine Ketones Urine Blood Urine Nitrite Urine Bilirubin Urine Urobilinogen Ur Leukocyte Esterase Salicylates Urine Opiates Screen Ur Methadone, Qual Acetaminophen Urine Barbiturates Ur Phencyclidine (PCP) U Amphetamin/Meth Scrn MDMA (Ecstasy) Screen U Benzodiazepines Scrn Ur Cocaine Metabolite U Marijuana (THC) Screen Ethyl Alcohol mg/dL COVID-19 Eval Order SARS-CoV-2, RNA, NAAT NEGATIVE Hospital Course (1) Depression: The patient was admitted to the [facility] (locked inpatient mental health unit) on every 15 minute checks (behavioral with suicide precautions for safety. The patient will participate in group, recreational, and milieu therapies and will be offered additional individual and family sessions as clinically appropriate. 07/01/2021atient making good progress with regards to her mood. Affect improvements noted. We will continue the same regimen for now. 06/30/2021we will continue on the same regimen for now. Patient still struggling with poor mood. 06/29/2021atient will be continued on 5 mg of Valium p.o. nightly, Prozac will be increased to 20 mg p.o. every morning. Mental Health & Subst Abuse Tx Psychiatrist Name of Psychiatrist: referral made to [facility] Psych[facility] Appointment Comment: is on waiting list as of 07/01/21 Psychiatrist Release of Information: Obtained, Reviewed and Signed Therapist Name of Therapist: Sabas Wilkinson Therapist's Date of Therapist Appointment: 07/12/21 Time of Therapist Appointment: 9:30 a.m. Therapy Appointment Comment: In person - [facility], [address] Therapist Release of Information: Obtained, Reviewed and Signed Bar Helper Name of Bar Helper: . Post Discharge Appointments Primary Care Physician Name Of Family Doctor: DOUG Ortiz [facility] Date of Appointment with PCP: 07/06/21 Time of Appointment with PCP: 10:45am Provider Appointment Comment: [facility] Release of Information: Obtained, Reviewed and Signed Smoking Cessation Counseling Tobacco Cessation Medication Prescribed at Discharge: Not Applicable/Non-Smoker Contact Information Discharge Discharge Address: [address] [place] [address] Discharge Plan Discharge Items Patient Disposition: Home - Self-Care Reason For Visit: SUICIDE ATTEMPT, DEPRESSION Discharge Diagnosis: Major Depressive Disorder Activity: Resume your previous activity Non-emergency contact: Primary Care Provider, Psychiatrist and Therapist Call non-emergency contact if: you have any medication questions Follow-up/Referrals: Kae Putnam DO [Primary Care Provider] - Diet: Regular Addtl Attending Provider Instructions: SPECIAL CARE INSTRUCTIONS: 1. Follow through with your scheduled aftercare appointments. If unable to keep an appointment, please call to reschedule. 2. Take your medication only as prescribed. Medication should not be changed or stopped without the approval of your doctor. In the event of worsening symptoms or concerns about side effects, contact your doctor immediately. 3. Utilize new healthy coping skills, anger management skills, and stress management skills learned during your hospitalization. Journal feelings and process them with a support person. Identify stressors or situations that may result in relapse, deterioration or inappropriate behaviors and develop a plan to deal with those issues. 4. If your coping skills are ineffective and you are in crisis, contact your outpatient providers for direction. If unable to reach your providers, please call the [facility] CRISIS LINE AT , go to the [facility] walk-in center at [address], [place], or go to the closest Emergency Room. 5. Avoid alcohol and un-prescribed drugs. 6. You have been provided with the Mental Health Advance Directives Pamphlet for your review. AFTERCARE APPOINTMENTS: * Please call your insurance company prior to your scheduled appointment to confirm your aftercare providers are covered. Take your insurance information to your appointments. WHO TO CALL AND WHEN: Medical Emergencies: For questions or emergencies related to your hospital stay, please contact the Inpatient Behavioral Health Unit at [phone]. A emergency room clinician is on-call 12/06 for the Behavioral Health Unit for emergencies At any time you feel your situation is an emergency, you may also call 911 immediately. Pending Studies at Discharge: No Stand-Alone Forms: My [facility], Smoking Cessation Medications and DC Order Prescriptions: New fluoxetine 20 mg Capsule 20 mg PO QAM Qty: 30 RF: 0 quetiapine 25 mg Tablet 50 mg PO HS 30 Days Qty: 60 RF: 0 Continued pantoprazole 40 mg tablet,delayed release (DR/EC) 40 mg PO BID RF: 0 levothyroxine 125 mcg tablet 125 mcg PO QAM RF: 0 oxybutynin chloride 5 mg tablet 5 mg PO QID RF: 0 Discontinued fluoxetine 10 mg capsule 10 mg PO QAM RF: 0 Discharge Orders: Discharge Order (Routine); Ordered 07/02/21 Ordered By: Douglas Page Admission Data Admit Date/Time: 06/28/21 17:24 Attending Provider: Douglas Page Admit Provider: Douglas Page Primary Care Provider: Kae Putnam Other Interventions: Discharge Summary Assessment (RN) Last Done: 07/02/21 10:22 PSY Interdisciplinary Discharge Planning Last Done: 07/02/21 10:25 Coding Level of Care Code 00454 D/C day mgmt > 30 min Diagnoses Depression F32.9 Depression Type: unspecified Time Spent (min) 35
== END 2021-07-02 12:36 | disposition home or self-care (01) | DRG 881 ==
LOC: ED 11:00 → 3S 17:24